=== PATIENT | female | born 1990 | race Caucasian/White ===

== ENCOUNTER 2020-06-12 08:26 | Emergency (ER) | payer OTHER, SELFPAY ==
--- NOTE | ~2020-06-12 | XR_ITS ---
EXAMINATION: XR chest 1V portable EXAM DATE: 06/12/2020 09:03 INDICATION: Cough, fever. Clinical concern for COVID 19. TECHNIQUE: Portable AP frontal chest x-ray was obtained. Comparison is made to prior examination from 04/07/2019. FINDINGS: Lungs are moderately hyperinflated. The lungs are clear. There are no pleural effusions. The cardiomediastinal silhouette is within normal limits. There is no pneumothorax suspected. The b ones and soft tissues are unremarkable. IMPRESSION: 1. No acute cardiopulmonary findings. 2. Hyperinflation. Reviewed, dictated and finalized at location A.
[2020-06-12 08:27] VITALS: BP 104/78; PULSE 92; RESP 18; TEMP 37.2; O2SAT 100
--- NOTE | 2020-06-12 08:27 | ED.SOB ---
HPI - SOB/Dyspnea General Chief Complaint: Shortness of Breath/Dyspnea Stated Complaint: sob,fever Time Seen by Provider: 06/12/20 08:27 Source: patient and EMS Mode of arrival: EMS Limitations: no limitations History of Present Illness HPI Narrative: Patient is a 30-year-old female who presents for evaluation of cough, shortness of breath, fever, congestion. Patient states she is concerned she has COVID given positive exposures at work. Patient does not mask at work. She reports 102 degrees fever yesterday. She reports her daughter is sick with similar symptoms. Patient reports that she feels as if she cannot catch her breath, but denies any chest pain. No fever today. She reports dry cough, congestion, nausea, myalgias, diarrhea yesterday. No current abdominal pain. Related Data Allergies Allergy/AdvReac Type Severity Reaction Status Date / Time risperidone Allergy Severe Other Verified 06/12/20 08:34 Review of Systems Review of Systems: Narrative: CONSTITUTIONAL: Reports fever and chills EYES: Denies visual changes, redness, or discharge. ENT: Reports rhinorrhea, congestion CARDIOVASCULAR: Denies chest pain, palpitations, or edema. RESPIRATORY: Reports cough and shortness of breath GASTROINTESTINAL: Denies abdominal pain, reports nausea and diarrhea GENITOURINARY: Denies dysuria or hematuria. SKIN: Denies rash or itching. MUSCULOSKELETAL: Denies back pain, joint pain, reports myalgias NEUROLOGIC: Denies headache, numbness, or weakness. [facility] Past Medical History Medical History Gestational diabetes Herpes Surgical History Surgical History History of appendectomy Social History Social History (Updated 06/12/20 @ 08:44 by Jia Bermudez MD) Smoking status: Former smoker Alcohol intake: unknown Substance use: unknown Living arrangements: with family Gender identity (if verbalized by the patient): Female Exam Narrative: Exam Narrative: GENERAL: Awake, alert, conversant HEAD: Normocephalic, atraumatic. EYES: PERRLA and EOMI. ENT: Nares clear, no rhinorrhea or epistaxis. Mucous membranes moist. NECK: Supple. CHEST: No respiratory distress, breathing even and non labored, no wheezing, no crackles, no coarse breath sounds, no chest wall tenderness HEART: Regular rate, sinus rhythm ABDOMEN:Non distended, non tender EXTREMITIES: Normal range of motion. No edema. SKIN: Warm, dry, no rash. NEURO:No focal deficits. Alert and oriented x3 Course Vital Signs Vital signs: Vital Signs Temperature 37.2 C 06/12/20 08:27 Pulse Rate 92 06/12/20 08:27 Respiratory Rate 18 06/12/20 08:27 Blood Pressure 104/78 06/12/20 08:27 Pulse Oximetry 100 06/12/20 08:27 Temperature 37.2 C 06/12/20 08:27 Pulse Rate 92 06/12/20 08:32 Respiratory Rate 18 06/12/20 08:27 Blood Pressure 104/78 06/12/20 08:27 Pulse Oximetry 99 06/12/20 08:33 MDM - SOB/Dyspnea MDM Narrative Medical decision making narrative: Patient presented for evaluation of cough, fever. At the time of initial assessment, ABCs are intact and vital signs are stable. She is not tachycardic, she is not having any chest pain. EKG without acute ischemic findings. Consider PE, although patient has no hypoxemia, no tachycardia, is PERC criteria negative. PE unlikely. Laboratory results show mild lymphopenia, no transaminitis. No evidence of infiltrate on chest x-ray. Patient was COVID swab. At this point, she likely does have COVID given her symptoms. No severe features at this point. No hypoxemia. No increased work of breathing. I explained to patient that severe symptoms can prevent within 5 to 10 days of illness, she will be given primary care physician follow-up, or advised to return should her breathing status worsen. Patient then discharged home. Differential Diagnosis Differential diagnosis: Likely co
[2020-06-12 08:32] VITALS: PULSE 92
[2020-06-12 08:33] VITALS: O2SAT 99
--- NOTE | 2020-06-12 08:49 | ECG_ITS ---
Measurements Intervals [place] Rate: 86 P: 66 SC: 133 QRS: 50 QRSD: 72 T: 19 QT: 366 QTc: 438 Interpretive Statements SINUS RHYTHM NONSPECIFIC T-WAVE ABNORMALITY- ANT/INF LEADS BASELINE ARTIFACT- V3-V4 BORDERLINE ECG Electronically Signed On 06-12-2020 11:17:44 CDT by Jeremy Edmond D.O.
[2020-06-12 08:59] LABS: Basophils Percent Auto 0.5 % (0.2-1.2); Eosinophils Absolute Auto 0.1 K/mm3 (0-0.3); Eosinophils Percent Auto 0.9 % (0-4.4); Hemoglobin 13.8 g/dL (12.0-15.0); Immature Granulocyte Absolute 0.02 K/mm3 (0.00-0.031); Immature Granulocyte Percent A 0.2 % (0-0.5); Lymphocytes Absolute Auto 1.16 K/mm3 (0.9-3.2); Lymphocytes Percent Auto 14.3 % (18.3-44.2); Mean Corpuscular HGB Conc 33.7 g/dl (32-36); Mean Corpuscular Hemoglobin 29.5 pg (26-34); Mean Corpuscular Volume 87.6 fl (80-100); Mean Platelet Volume 10.1 fl (7.4-10.4); Monocytes Absolute Auto 0.9 K/mm3 (0.1-0.6); Monocytes Percent Auto 11.1 % (2.6-8.5); Neutrophils Absolute Auto 5.9 K/mm3 (1.3-6.7); Platelet Count Result 329 k/mm3 (150-375); Red Blood Count 4.68 M/mm3 (4.2-5.4); Red Cell Distribution Width 13.1 % (11.5-14.5); White Blood Count 8.1 K/mm3 (4.5-10.0)
[2020-06-12 09:12] LABS: Alanine Aminotransferase 14 U/L (4-35); Albumin Level 4.1 g/dL (3.5-5.1); Alkaline Phosphatase 67 U/L (38-126); Aspartate Amino Transferase 19 U/L (14-36); Bilirubin,Total 0.3 mg/dL (0.2-1.3); Blood Urea Nitrogen 7 mg/dL (7-17); CRP 2.3 mg/dL (<1.0); Carbon Dioxide 20 mmol/L (22-30); Chloride 107 mmol/L (98-107); Estimated CRCL calculation 102 ml/min; Estimated Glomerular Filt Rate > 60; Glucose 99 mg/dL (65-105); Potassium 3.8 mmol/L (3.4-5.0); Sodium 136 mmol/L (137-145)
[2020-06-12] MEDS: ACETAMINOPHEN 500 MG TABLET 1000 MG PO (09:16)
[2020-06-12] MEDS: ONDANSETRON HCL ODT 4 MG TABLET PO (09:16)
[2020-06-12 10:05] VITALS: BP 92/59; PULSE 89; RESP 15; O2SAT 98
[2020-06-12 18:39] LABS: SARS-CoV-2 RNA PCR Negative
== END 2020-06-12 10:18 | disposition home or self-care (01) ==
PROVIDERS: Emergency Provider Emergency Medicine
DX: Z20.828 Contact with and (suspected) exposure to other viral communicable diseases (principal); B34.9 Viral infection, unspecified
CPT/HCPCS: 36415; 71045; 80053; 81025; 85025; 86140; 87635; 93005; 99283; A9270; C9803; U0003

== ENCOUNTER 2021-02-12 16:26 | Emergency (ER) | payer OTHER, SELFPAY ==
[2021-02-12 16:27] VITALS: BP 104/65; PULSE 80; RESP 16; TEMP 36.6; O2SAT 100
--- NOTE | 2021-02-12 18:40 | ED.GENADULT ---
HPI - General Adult General Chief complaint: Unspecified Stated complaint: not feeling well Time Seen by Provider: 02/12/21 17:08 History of Present Illness HPI narrative: Patient is a 30-year-old female who comes emergency room today because she is not feeling well. Reports that for the last 1 week she has been having chills, cold sweats, nausea with vomiting, frontal headache and she has been feeling very tired. She is taken Tylenol and her Profen with minimal relief. She checked her temperature at home but she never had a temperature over 100. Patient is here with her toddler daughter who is having viral symptoms and is getting tested for COVID-19. Patient has not been tested. Patient's and niece both have similar symptoms to the patient. Neither of them have been tested for COVID-19. Patient denies any possibility of . Denies abdominal pain, chest pain or shortness of breath. Related Data Allergies Allergy/AdvReac Type Severity Reaction Status Date / Time risperidone Allergy Severe Other Verified 06/12/20 08:34 Review of Systems Review of Systems: All systems reviewed & are unremarkable except as noted in HPI and below PMFSH Past Medical History Medical History (Updated 02/12/21 @ 18:47 by Nikunj Moise PA-C) Gestational diabetes Herpes Surgical History Surgical History History of appendectomy Social History Social History (Updated 06/12/20 @ 08:44 by Jia Bermudez MD) Smoking status: Former smoker Alcohol intake: unknown Substance use: unknown Gender identity (if verbalized by the patient): Female Exam Const: General: cooperative, no acute distress and well developed Other: Pleasant, well-appearing HENMT: Head: normal to inspection, normocephalic and atraumatic Ears: external ears normal, TM's normal bilaterally, TM normal on the right, TM normal on the left and EAC's normal General nose exam: Normal nares present Mouth: Yes Normal oral and palatal mucosa present and Yes oropharynx normal Throat: posterior oropharynx normal Eyes: General: appearance normal, both eyes and all related structures Neck: Neck: normal visual inspection Chest: Chest palpation & inspection: normal inspection of the chest Resp: Effort & Inspection: normal respiratory effort and able to speak in complete sentences Auscultation: clear to auscultation bilaterally Cardio: Rate: regular rate Rhythm: regular rhythm GI: Inspection: normal to inspection GI Palp: No abdominal tenderness Auscultation: normal bowel sounds Back/Spine/Pelvis: Back: no CVA tenderness Skin: General skin exam: normal color and no rashes or lesions noted Neuro: General: patient oriented x3 and moves all extremities Gait exam (Neuro): Normal gait present Course Course Emergency Course: Offered IV fluids and IV medicines and lab work. Discussed with patient the symptoms are consistent with a viral illness, probably the same virus that the rest of her family has. Patient politely refuses any IV fluids or any medicines at all right now, she has her toddler with her and she needs to get back home. We have agreed on plan for discharge, she will be tested for the COVID-19 virus. She will stay home until the test result comes back. Otherwise I will prescribe her with some Zofran, she will keep herself hydrated and she can use [id number] Tylenol on her Profen as needed and she will come back to the ED with any new or worsening symptoms. Vital Signs Vital signs: Vital Signs Temperature 36.6 C 02/12/21 16:27 Pulse Rate 80 02/12/21 16:27 Respiratory Rate 16 02/12/21 16:27 Blood Pressure 104/65 02/12/21 16:27 Pulse Oximetry 100 02/12/21 16:27 Temperature 36.6 C 02/12/21 16:27 Pulse Rate 80 02/12/21 16:27 Respiratory Rate 16 02/12/21 16:27 Blood Pressure 104/65 02/12/21 16:27 Pulse Oximetry 100 02/12/21 16:27 [facility]
[2021-02-12 23:58] LABS: SARS-CoV-2 RNA PCR Negative
== END 2021-02-12 19:01 | disposition home or self-care (01) ==
PROVIDERS: Physician Assistant Medical; Emergency Provider Emergency Medicine; PCP Nurse Practitioner
DX: Z20.828 Contact with and (suspected) exposure to other viral communicable diseases (principal); B34.9 Viral infection, unspecified; R11.10 Vomiting, unspecified
CPT/HCPCS: 99283; C9803; U0003; U0005

== ENCOUNTER 2021-03-24 16:16 | Emergency (ER) | payer OTHER, MEDICAID, SELFPAY ==
[2021-03-24 16:26] VITALS: BP 117/79; PULSE 110; RESP 16; TEMP 36.1; O2SAT 100
--- NOTE | 2021-03-24 17:55 | ED.GENADULT ---
HPI - General Adult General Chief complaint: Upper Respiratory Infection <Oniel Rojas PA-C - Last Filed: 03/24/21 17:59> Stated complaint: ST, N/V <Oniel Rojas PA-C - Last Filed: 03/24/21 17:59> Time Seen by Provider: 03/24/21 16:19 <Oniel Rojas PA-C - Last Filed: 03/24/21 17:59> Source: patient <Oniel Rojas PA-C - Last Filed: 03/24/21 17:59> Mode of arrival: ambulatory <Oniel Rojas PA-C - Last Filed: 03/24/21 17:59> Limitations: no limitations <Oniel Rojas PA-C - Last Filed: 03/24/21 17:59> History of Present Illness HPI narrative: Patient is a 31-year-old female who presents to emergency department for evaluation of URI symptoms that developed today she has 2 sick kids at home also notes that her recently had Covid patient had had a negative Covid recently and is just coming off being quarantined patient notes congestion rhinorrhea cough denies any other complaints presents in no distress is also being seen with several of her kids patient has not taken anything for her symptoms <Oniel Rojas PA-C - Last Filed: 03/24/21 17:59> Related Data Allergies/adverse reactions: Allergies Allergy/AdvReac Type Severity Reaction Status Date / Time risperidone Allergy Severe Other Verified 06/12/20 08:34 <Oniel Rojas PA-C - Last Filed: 03/24/21 17:59> Review of Systems Review of Systems: All systems reviewed & are unremarkable except as noted in HPI and below <Oniel Rojas PA-C - Last Filed: 03/24/21 17:59> PMFSH Past Medical History Medical History: Medical History (Updated 03/24/21 @ 17:58 by Oniel Rojas PA-C) Gestational diabetes Herpes <CAIO Martinez Last Filed: 03/24/21 17:59> Surgical History Surgical History: Surgical History History of appendectomy <CAIO Martinez Last Filed: 03/24/21 17:59> Social History Social History: Social History Smoking status: Former smoker Alcohol intake: unknown Substance use: unknown Gender identity (if verbalized by the patient): Female <Oniel Rojas PA-C - Last Filed: 03/24/21 17:59> Exam Narrative: Exam Narrative: GENERAL: Well-appearing, well-nourished, and in no acute distress. HEAD: Normocephalic, atraumatic. EYES: PERRLA and EOMI. ENT: Nares clear, no rhinorrhea or epistaxis. Mucous membranes moist. Oropharynx without tonsillar hypertrophy exudate or other lesions. NECK: Supple. No adenopathy or masses. CHEST: Clear to auscultation. No respiratory distress. No wheezes rales or rhonchi HEART: Regular rate and rhythm. No murmur heard. EXTREMITIES: Normal range of motion. No edema. SKIN: Warm, dry, no rash. NEURO: No focal deficits. Alert and oriented x3. PSYCH: Normal mood and affect. <Oniel Rojas PA-C - Last Filed: 03/24/21 17:59> Course Course Emergency Course: Patient in the room in no distress aware of case findings treatment plan and diagnosis agreeing to follow-up as instructed swabbed for Covid aware that she needs to follow with primary care to obtain the results and will be treated symptomatically normal vital signs felt appropriate for outpatient reevaluation <Oniel Rojas PA-C - Last Filed: 03/24/21 17:59> Vital Signs Vital signs: Vital Signs Temperature 97 F L 03/24/21 16:26 Pulse Rate 110 H 03/24/21 16:26 Respiratory Rate 16 03/24/21 16:26 Blood Pressure 117/79 03/24/21 16:26 Pulse Oximetry 100 03/24/21 16:26 Temperature 97 F L 03/24/21 16:26 Pulse Rate 100 03/24/21 18:07 Respiratory Rate 20 03/24/21 18:07 Blood Pressure 118/80 03/24/21 18:07 Pulse Oximetry 100 03/24/21 18:07 <Oniel Rojas PA-C - Last Filed: 03/24/21 17:59> Vital Signs Temperature 97 F L 03/24/21 16:26 Pulse Rate 110 H 03/24/21 16
[2021-03-24 18:07] VITALS: BP 118/80; PULSE 100; RESP 20; O2SAT 100
[2021-03-25 14:27] LABS: SARS-CoV-2 RNA PCR Negative
== END 2021-03-24 18:09 | disposition home or self-care (01) ==
PROVIDERS: Emergency Medicine Emergency Medical Services; Emergency Provider General Practice; PCP Nurse Practitioner
DX: J06.9 Acute upper respiratory infection, unspecified (principal); Z20.822 Contact with and (suspected) exposure to COVID-19; Z87.891 Personal history of nicotine dependence
CPT/HCPCS: 99283; C9803; U0003; U0005

== ENCOUNTER → 2022-01-06 13:09 | Outpatient (CLI) | payer OTHER, SELFPAY ==
--- NOTE | ~2022-01-06 | XR_ITS ---
XR chest 2V DATE: 01/06/2022 13:25 INDICATION: Dyspnea on exertion TECHNIQUE: 2 views COMPARISON: 06/12/2020 portable AP chest FINDINGS: Normal heart size. No hilar or mediastinal enlargement. No pulmonary infiltrate or consolid ation, pleural effusion or pulmonary vascular congestion or pneumothorax. Diffuse osteopenia. IMPRESSION: No active cardiopulmonary disease Diffuse osteopenia Reviewed, dictated and finalized at location B. CASE TRIMMER
== END ==
DX: R06.00 Dyspnea, unspecified (principal); M85.88 Other specified disorders of bone density and structure, other site
CPT/HCPCS: 71046

== ENCOUNTER → 2022-03-30 12:45 | Outpatient (CLI) | payer OTHER, SELFPAY ==
--- NOTE | ~2022-03-30 | XR_ITS ---
XR foot RT min 3V DATE: 03/30/2022 13:08 INDICATION: Burning sensation in feet TECHNIQUE: 4 views COMPARISON: None FINDINGS: No fracture or dislocation, periosteal reaction or bone destruction, joint space narrowing, erosive change or calcaneal enthesopathy. IMPRESSION: Negative Reviewed, dictated and finalized at location B. IMPRESSION: Negative
--- NOTE | ~2022-03-30 | XR_ITS ---
XR foot LT min 3V DATE: 03/30/2022 13:08 INDICATION: Burning sensation in feet TECHNIQUE: 4 views COMPARISON: None FINDINGS: No fracture or dislocation, periosteal reaction or bone destruction. No calcaneal enthesopa thy. Joint spaces are preserved. No erosive changes IMPRESSION: Negative Reviewed, dictated and finalized at location B. IMPRESSION: Negative
== END ==
DX: R20.2 Paresthesia of skin (principal)
CPT/HCPCS: 73630

== ENCOUNTER 2022-09-27 12:03 | Emergency (ER) | payer OTHER, SELFPAY ==
--- NOTE | ~2022-09-27 | CT_ITS ---
EXAMINATION: CT pelvis wo con DATE: 09/27/2022 15:19 INDICATION: TECHNIQUE: Computed tomography (CT) of the pelvis was performed without intravenous contrast. The dos e-length product was 440.58 mGy-cm. COMPARISON: None FINDINGS: Normal mineralization. Minimal degenerative change at the bilateral SI joints. No fracture or dislocation. Osteitis pubis. The bladder is decompressed. Remaining pelvic organs are within raimundo l limits. Appendix not visualized. No significant soft tissue abnormality. IMPRESSION: 1. No acute osseous finding in the pelvis. Reviewed, dictated and finalized at location K. ING TEACHER
--- NOTE | ~2022-09-27 | CT_ITS ---
EXAMINATION: CT lumbar spine wo con DATE: 09/27/2022 15:19 INDICATION: work injury, worsening radicular symptoms . TECHNIQUE: Computed tomography (CT) of the lumbar spine was performed without intravenous contrast. A utomated exposure control and iterative reconstruction technique were employed. The dose-length produ ct was 721.25 mGy-cm. COMPARISON: None. FINDINGS: 5 nonrib-bearing lumbar-type vertebral bodies. Pedicles intact. Normal vertebral body align ment. Vertebral body heights preserved. Disc spaces maintained. Normal facets and posterior elements. Minimal abdominal aortic atherosclerotic calcification. IMPRESSION: No acute fracture or traumatic malalignment in the lumbar spine. Reviewed, dictated and finalized at location K. [employer]ISOR SHUTTLE PREPARATION
[2022-09-27 12:08] VITALS: BP 117/82; PULSE 98; RESP 18; TEMP 36.3; O2SAT 100
--- NOTE | 2022-09-27 13:35 | ED.FEMALEGU ---
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 Patient states that she had an injury at work approximately 2 weeks ago. States that she was lifting a 70 pound box when she excellently dropped it and it dragged her down with that. Since that time she has had ongoing lower back and pelvic pain that radiates down her legs. States that she was seen by another ER 2 days ago and x-rays were obtained which were unremarkable. States that she continues to have pain so she came in for evaluation. She denies saddle anesthesia, bladder or bowel incontinence, IV drug use, numbness or weakness of her legs. She denies any bruising or skin changes. No fevers or chills, chest pain, shortness of breath, abdominal pain, vomiting, dysuria. Related Data Home Medications Medication Instructions Recorded Confirmed drospirenone 3 mg-ethinyl tablet 09/27/22 09/27/22 estradiol 0.03 mg tablet quetiapine 200 mg tablet,extended mg PO 09/27/22 release 24 hr topiramate 100 mg tablet mg 09/27/22 Allergies Allergy/AdvReac Type Severity Reaction Status Date / Time risperidone Allergy Severe Other Verified 09/27/22 12:49 Review of Systems Review of Systems: All systems reviewed & are unremarkable except as noted in HPI and below PMFSH Past Medical History Medical History Gestational diabetes Herpes Surgical History Surgical History History of appendectomy Social History Social History Smoking status: Former smoker Alcohol intake: unknown Substance use: unknown Gender identity (if verbalized by the patient): Female Exam Narrative: GENERAL: Intermittently tearful but in no acute distress HEAD: Normocephalic, atraumatic. EYES: PERRLA and EOMI. ENT: Nares clear, no rhinorrhea or epistaxis. Mucous membranes moist. NECK: Supple. CHEST: Clear to auscultation. No respiratory distress. HEART: Regular rate and rhythm. No murmur heard. Normal peripheral pulses. ABDOMEN: Soft, nontender, nondistended, normal active bowel sounds. EXTREMITIES: Normal range of motion. No edema. SKIN: Warm, dry, no rash. NEURO: No focal deficits. Alert and oriented x3. PSYCH: Normal mood and affect. Course Vital Signs Vital signs: Vital Signs Temperature 97.3 F L 09/27/22 12:08 Pulse Rate 98 09/27/22 12:08 Respiratory Rate 18 09/27/22 12:08 Blood Pressure 117/82 09/27/22 12:08 Pulse Oximetry 100 09/27/22 12:08 Oxygen Delivery Room Air 09/27/22 12:08 Temperature 97.3 F L 09/27/22 12:08 Pulse Rate 89 09/27/22 18:45 Respiratory Rate 17 09/27/22 18:45 Blood Pressure 119/80 09/27/22 18:45 Pulse Oximetry 100 09/27/22 18:45 Oxygen Delivery Room Air 09/27/22 12:08 MDM - Female Genitourinary MDM Narrative Medical decision making narrative: Patient is a 32-year-old female presenting with pelvic and hip pain following a work injury. Vitals within normal limits. Exam is unremarkable. She has mild midline tenderness of her lower lumbar spine that extends across both buttocks. Her abdomen is soft and benign. She is fully neurologically intact. She is able to ambulate. CT lumbar spine and pelvis were obtained which show no acute abnormalities. Her blood work is unremarkable. On reevaluation, patient states that she continues to have pain. 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 She may benefit from physical therapy following this work injury. Advised that she continue to use Tylenol and ibuprofen for pain control. Appropriate return precautions were given. Patient discharged
[2022-09-27] MEDS: KETOROLAC 30 MG/ML VIAL (*BKC) IV PUSH (13:47)
[2022-09-27] MEDS: methocarbamoL 500 MG TABLET PO (13:47)
[2022-09-27 13:53] LABS: Basophils Percent Auto 0.3 % (0.2-1.2); Eosinophils Absolute Auto 0.3 K/mm3 (0-0.3); Eosinophils Percent Auto 2.6 % (0-4.4); Hematocrit 44.5 % (37.0-47.0); Hemoglobin 14.4 g/dL (12.0-15.0); Immature Granulocyte Absolute 0.05 K/mm3 (0.00-0.031); Immature Granulocyte Percent A 0.4 % (0-0.5); Lymphocytes Absolute Auto 2.88 K/mm3 (0.9-3.2); Lymphocytes Percent Auto 23.9 % (18.3-44.2); Mean Corpuscular HGB Conc 32.4 g/dl (32-36); Mean Corpuscular Hemoglobin 27.3 pg (26-34); Mean Corpuscular Volume 84.4 fl (80-100); Mean Platelet Volume 9.9 fl (7.4-10.4); Monocytes Absolute Auto 0.7 K/mm3 (0.1-0.6); Monocytes Percent Auto 5.6 % (2.6-8.5); Neutrophils Absolute Auto 8.1 K/mm3 (1.3-6.7); Neutrophils Percent Auto 67.2 % (45.5-73.1); Platelet Count Result 427 k/mm3 (150-375); Red Blood Count 5.27 M/mm3 (4.2-5.4); Red Cell Distribution Width 15.6 % (11.5-14.5)
[2022-09-27 14:09] LABS: Mucus Urine Rare /lpf; RBC Urine 0-2 /hpf (0-2); Squamous Epithelial Cell Urine Few /hpf (Few); WBC Urine 0-3 /hpf
[2022-09-27 14:11] LABS: Appearance Urine Slightly Cloudy (Clear); Bilirubin Urine Negative (Negative); Blood Urine Negative (Negative); Color Urine Yellow (Yellow); Glucose Urine UA Negative (Negative); Ketones Urine Negative (Negative); Leukocyte Esterase Ur Trace LEU/UL (Negative); Nitrate Urine Negative (Negative); Protein Urine Negative (Negative); Specific Grav Ur 1.025 (1.001-1.035); Urobilinogen Urine 0.2 mg/dL (<2.0)
[2022-09-27 14:12] LABS: Alanine Aminotransferase 23 U/L (6-35); Albumin Level 4.6 g/dL (3.5-5.1); Alkaline Phosphatase 82 U/L (38-126); Anion Gap 19 mmol/L (8-16); Aspartate Amino Transferase 38 U/L (14-36); Bilirubin,Total 0.6 mg/dL (0.2-1.3); Blood Urea Nitrogen 12 mg/dL (7-17); Calcium 9.2 mg/dL (8.4-10.2); Carbon Dioxide 16 mmol/L (22-30); Chloride 108 mmol/L (98-107); Creatine Kinase 73 U/L (30-135); Estimated CRCL calculation 96 ml/min; Estimated Glomerular Filt Rate > 60; Glucose 118 mg/dL (65-110); Potassium 4.3 mmol/L (3.4-5.0); Sodium 143 mmol/L (137-145)
[2022-09-27 14:19] LABS: Add Urine Microscopic? YES
[2022-09-27 18:45] VITALS: BP 119/80; PULSE 89; RESP 17; O2SAT 100
== END 2022-09-27 18:47 | disposition home or self-care (01) ==
PROVIDERS: Emergency Provider Emergency Medicine
DX: S39.92XA Unspecified injury of lower back, initial encounter (principal); R10.2 Pelvic and perineal pain; Z87.891 Personal history of nicotine dependence; W18.39XA Other fall on same level, initial encounter
CPT/HCPCS: 36415; 72131; 72192; 80053; 81001; 81025; 82550; 85025; 96365; 96375; 99284; A9270; J0131; J1885

== ENCOUNTER 2025-05-09 08:34 | Outpatient (CLI) | payer OTHER, SELFPAY ==
--- NOTE | ~2025-05-09 | MMUS_ITS ---
EXAMINATION: MM diagnostic nanda BI w walter, US breast BI complete HISTORY: Breast pain TECHNIQUE: Additional 3-D tomosynthesis images of the breasts were performed and synthetic 2-D images were generated. CAD analysis was submitted and interpreted. High resolution bilateral complete breas t ultrasound was performed. COMPARISON: None BREAST PARENCHYMAL COMPOSITION: Dense: The breasts are heterogeneously dense, which may obscure small masses FINDINGS: MAMMOGRAPHIC FINDINGS: There are no suspicious masses, calcifications or architectural distortion in either breast to sugges t malignancy. ULTRASOUND: Complete US of all 4 quadrants of the breast/s and retroareolar region was reviewed. Right breast: At 9:00, 5 cm from the nipple there is a 4 mm cyst. In the right axilla there is a norm al-appearing 1.7 cm lymph node with fatty hilum. Left breast: At 4:00, 2 cm from the nipple there is a 3 mm cyst. At 6:00, 3 cm from the nipple there is a slightly irregular shaped hypoechoic mass measuring 4 mm with marginal vascularity and no signif icant posterior features. There is normal left axillary lymph nodes. IMPRESSION: 1. Irregular shaped hypoechoic 4 mm mass of the left breast at 6:00, 3 cm from the nipple. Ultrasound -guided left breast biopsy recommended. 2. No evidence for malignancy in the right breast. BI-RADS category 4, suspicious findings. Reviewed, dictated and finalized at location A. IMPRESSION: 1. Irregular shaped hypoechoic 4 mm mass of the left breast at 6:00, 3 cm from the nipple. Ultrasound-guided left breast biopsy recommended. 2. No evidence for malignancy in the right breast. BI-RADS category 4, suspicious findings.
== END 2025-05-09 08:35 | disposition home or self-care (01) ==
LOC: MICIMG 08:35
PROVIDERS: PCP Internal Medicine; Visit Provider Internal Medicine
DX: N64.4 Mastodynia (principal); R92.8 Other abnormal and inconclusive findings on diagnostic imaging of breast
CPT/HCPCS: 76641; 77062; 77066; G0279

== ENCOUNTER 2025-06-04 07:51 | Outpatient (CLI) | payer OTHER, SELFPAY ==
--- NOTE | ~2025-06-04 | MMUS_ITS ---
MM post biopsy diagnostic LT, US breast biopsy LT w image 06/04/2025 09:34 (accession [id number]), 06/04/2025 09:46 (accession [id number]) EXAMINATION: US GUIDED NEEDLE BIOPSY WITH VACUUM ASSISTANCE DATE: 06/04/2025 09:54 CDT INDICATION: Left breast mass seen on prior examination. Ultrasound-guided core biopsy is requested t o evaluate for malignancy. BREAST PARENCHYMAL COMPOSITION: Dense: The breasts are extremely dense, which lowers the sensitivity of mammography. TECHNIQUE AND FINDINGS: The risks and potential benefits of the procedure were discussed with the patient, and written inform ed consent was obtained. After sterile preparation of the left breast, 1% lidocaine was utilized for local anesthesia. 1% lidocaine with epinephrine was used for deep anesthesia. A 10G vacuum-assisted biopsy gun needle was advanced through to the outer edge of the region of inter est from a inferior approach utilizing sonographic guidance. A total of 4 tissue core samples were o btained through the lesion. An Inrad tissue marker clip was then placed at the biopsy site. Hemostas is was achieved. The patient tolerated procedure well and there was no evidence of immediate complication. The patien t was given verbal instructions partly is from the department. Left breast mammograms to document ti ssue marker clip placement. The tissue samples were submitted to surgical pathology for histologic an alysis. IMPRESSION: 1. Successful ultrasound-guided vacuum-assisted biopsy of left breast mass with post procedure mammo gram for marker placement. Please refer to pathology report for histologic analysis. Reviewed, dictated and finalized at location [] IMPRESSION: 1. Successful ultrasound-guided vacuum-assisted biopsy of left breast mass wit h post procedure mammogram for marker placement. Please refer to pathology repo rt for histologic analysis.
--- OUTSIDE RECORDS SUMMARY | 2025-06-04 07:55 | XMS_ITS | Referral Summary ---
Author Organization [facility] Address [address] [place] [address] Care Team Providers Care Costume Director Name Role Phone Unknown, Notinfile Primary Care Provider Unavail able Allergies Active Allergy Reactions Criticality Noted Date Comments Risperidone Other (See comments) Low 09/24/2022 Decreases BP Medications cyclobenzaprine (FLEXERIL) 10 mg tablet Take 0.5 tablets (5 mg total) by mouth 2 (two) times a day as needed for muscle spasms for up to 6 doses 3 tablet 09/24/2022 Active naproxen (NAPROSYN) 375 mg tablet Take 1 tablet (375 mg total) by mouth 2 (two) times a day with meals for 5 days 10 tablet 09/24/2022 Active lidocaine (LIDODERM) 5 % Place 1 patch on the skin daily for 5 days Remove & discard patch within 12 hours or as directed by . 5 patch 09/24/2022 Active Social History Tobacco Use Types Packs/Day Years Used Date Smoking Tobacco: Never Assessed Personal Safety Answer Date Recorded Have you ever been in or are you currently in a harmful physical or emotional relationship or is someone making you feel afraid or unsafe? 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 Gender Identity Not on file Sexual Orientation Not on file Last Filed Vital Signs Vital Sign Reading Time Taken Comments Blood Pressure 128/80 10/10/2023 5:13 PM COLOR ARTIST Pulse 91 10/10/2023 5:13 PM COLOR ARTIST Temperature 37.2 C (99 F) 10/10/2023 5:13 PM COLOR ARTIST Respiratory Rate 14 10/10/2023 5:13 PM COLOR ARTIST Oxygen Saturation 100% 10/10/2023 5:13 PM COLOR ARTIST Inhaled Oxygen Concentration - - Weight 72.6 kg (160 lb) 10/10/2023 5:13 PM COLOR ARTIST Height 157.5 cm (5' 2) 10/10/2023 5:13 PM COLOR ARTIST Body Mass Index 29.26 10/10/2023 5:13 PM COLOR ARTIST Plan of Treatment Not on file Insurance [employer] Care Teams Costume Director Relationship Specialty Start Date End Date Unknown, Notinfile PCP - General 09/24/22
--- OUTSIDE RECORDS SUMMARY | 2025-06-04 07:55 | XMS_ITS | Encounter Summary ---
Author Organization [facility] Address [address] [place] [address] Phone Care Team Providers Care Wire Drawing Setter Name Role Phone Cathryn Ceron APRN, RESEARCH COMPUTING SPECIALIST Unavailable [phone] Meek Márquez MD Primary Care Provider [phone] Reason for Visit * Reason Comments Medication Refill Encounter Details Date Type Department Care Team (Late st Contact Info) Description 01/12/2024 [facility]ill [facility] [address] [place] [address] Cathryn Ceron APRN, RESEARCH COMPUTING SPECIALIST #[address] [address] Medication Refill Social History Tobacco Use Types Packs/Day Years Used Date Smoking Tobacco: Former Cigarettes 0.3 16 2 2017 Smokeless Tobacco: Never Alcohol Use Standard Drinks/Week Comments No 0 (1 standard drink = 0.6 oz pur e alcohol) [facility] Utilities Answer Date Recorded In the past 12 months has e electric, gas, oil, or water company threatened to shut off services in your home? No 12/22/2023 PHQ-2 Answer Date Recorded Total Score - Questions 1-9 0 01/20 Hunger Vital Sign Answer Date Recorded Within the past 12 months, y ou worried that your food would run out before you got the money to buy more. Never true 12/22/19 24 Within the past 12 months, t he food you bought just didn't last and you didn't have money to get more. Never true 12/22/2023 PRAPARE - Transportation Answer Date Re corded In the past 12 months, has l ack of transportation kept you from medical appointments or from getting medications? No 11/24 In the past 12 months, has l ack of transportation kept you from meetings, work, or from getting things needed for daily living? No 12/22/2023 Housing Stability Vital Sign Answer Sergei e Recorded In the last 12 months, was t here a time when you were not able to pay the mortgage or rent on time? No 12/22/2023 In the last 12 months, how many places have you lived? 2 12/22/2023 In the last 12 months, was t here a time when you did not have a steady place to sleep or slept in a longterm (including now)? No 12/22/2023 Education Answer Date Recorded What is the highest level of school you have completed or the highest degree you have received? Some college, no degree 10/26/2023 Sexually Active Control Partners Comments Yes Oral Contraceptive Male Comments No Sex and Gender Information Value Date Recorded Sex Assigned at Not on file Legal Sex Female 8:58 PM BOARD OF DIRECTORS Gender Identity Not on file Sexual Orientation Not on file documented as of this encounter Miscellaneous Notes * Telephone Encounter - Leonarda Harper RN - 01/12/2024 1:32 PM BOARD OF DIRECTORS Medication failed the protocol, provider to review and approve the medication order if appropriate. Requested Prescriptions Pending Prescriptions Disp Refills Zepbound 5 MG/0.5ML Solution Auto-injector [Pharmacy Med Name: ZEPBOUND 5MG/0.5ML INJ (4 PF PENS)] 2 mL 0 Sig: ADMINISTER 5 MG UNDER THE SKIN 1 TIME A WEEK Not Delegated - Anti-Obesity Agents Protocol Failed - 01/12/2024 11:49 AM Failed - This refill cannot be delegated Passed - Visit with relevant provider in past 12 months or upcoming 90 days Recent Visits Date Type Provider Dept 10/26/23 Office Visit Cathryn Ceron APRN, RESEARCH COMPUTING SPECIALIST [facility] 02/05/23 Office Visit Cathryn Ceron APRN, CNP [facility] 01/21/23 [facility] Showing recent visits within past 365 days and meeting all other requirements Future Appointments No visits were found meeting these conditions. Showing future appointments within next 90 days and meeting all other requirements D OF DIRECTORS documented in this encounter Plan of Treatment Not on file documented as of this encounter Visit Diagnoses Diagnosis BMI 31.0-31.9,adult Body Mass Index 31.0-31.9, adult documented in this encounter Care Teams Wire Drawing Setter Relationship Specialty Start Date End Date Meek Márquez MD #[address] [address] PCP - General Family Medicine 01/26/22 Cathryn Ceron APRN, CNP #[address] [address] Nurse Practitioner Advanced Practice Nurse 01/26/22 documented as of this encounter
--- OUTSIDE RECORDS SUMMARY | 2025-06-04 07:55 | XMS_ITS ---
Author Organization [facility] Address [address] [place] [address] Phone Care Team Providers Care Rn Wound Care Name Role Phone Meek Márquez MD Primary Care Provider [phone] [facility] Status:Enrolled (Active) Start date:12/20/2024 Enrollment date:12/20/2024 Related social drivers of health:Social Connections, Alcohol Use, Tobacco Use, Financial Resource Strain, Stress, Physical Activity Continued Care and Services Coordination
--- OUTSIDE RECORDS SUMMARY | 2025-06-04 07:55 | XMS_ITS | Clinical Summary ---
Author Organization [facility] Address [address] [place] [address] Phone Care Team Providers Care Program Director Cable Television Name Role Phone Meek Márquez MD Primary Care Provider [phone] Allergies Active Allergy Reactions Criticality Noted Date Comments Risperidone Other (see Comments) 02/02/2022 Medications albuterol 108 (90 Base) MCG/ACT Aerosol Solution take 2 Puffs by inhalation every 6 hours as needed. 1 Active Drospirenone-Eth inyl Estradiol 3-0.03 MG Tablet Take 1 Tablet by mouth nightly. 1 Active valACYclovir (VALTREX) 500 MG TabletIndication s:HSV infection Take 1 Tablet by mouth daily. 90 Tablet 1 3 Active Additional Information Patient taking differently:500 mg OralNIGHTLY, Reported on 12/22/2023 ARIPiprazole (ABILIFY) 10 MG Tablet Take 10 mg by mouth daily. 4 Active eszopiclone (LUNESTA) 2 MG Tablet Take 2 mg by mouth nightly as needed for Sleep. 4 Active QUEtiapine Fumarate 300 MG Tablet Take 300 mg by mouth nightly. 3 Active topiramate (Topamax) 200 MG Tablet Take 200 mg by mouth nightly. Active MELATONIN GUMMIES PO Take 12 mg by mouth nightly. Active ondansetron (ZOFRAN-ODT) 4 MG TABLET DISPERSIBLE Take 1 Tablet by mouth every 8 hours as needed for Nausea - 1st line. 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 , antepartum 02/02/2022 Migraine headache 02/02/2022 Polycystic ovaries 02/02/2022 Obsessive compulsive disorder 02/02/2022 Bipolar II disorder 02/13/2021 PTSD (post-traumatic stress disorder) 12/12/2020 Mixed obsessional thoughts and acts 11/13/2020 Generalized anxiety disorder 11/13/2020 Immunizations Immunization Administration Dates Next Due Covid-19, Mrna, Lnp-s, Pf, 1 0 Mcg/0.2 Ml Dose, Lui-sucroe (*PEDIATRIC* Pfizer) 05/28/2021,05/02/2021 Covid-19, Mrna, Lnp-s, Pf, 30 Mcg/0.3 Ml Dose (Lizette fizer) 05/28/2021,05/02/2021 Family History Medical History Relation Name Comments No Known Problems Daughter 1 No Known Problems Daughter 2 No Known Problems Half-Brother Bipolar Disorder Half-Sister 1 Kidney Cancer Half-Sister 1 No Known Problems Half-Sister 2 Bipolar Disorder Mother Heart Disease Mother Hypertension Mother No Known Problems Son Relation Name Status Comments Daughter 1 Alive Daughter 2 Alive Father Alive Half-Brother Alive Half-Sister 1 Alive Half-Sister 2 Alive Mother Alive Son Alive Social History Tobacco Use Types Packs/Day Years Used Date Smoking Tobacco: Former Cigarettes 0.3 16 2 - 2017 Smokeless Tobacco: Never Tobacco Cessation:Counseling Given: Not Answered Alcohol Use Standard Drinks/Week Comments No 0 (1 standard drink = 0.6 oz pur e alcohol) [facility] Utilities Answer Date Recorded In the past 12 months has th e electric, gas, oil, or water company [...] place to sleep or slept in a long-term (including now)? No 12/22/2023 Education Answer Date Recorded What is the highest level of school you have completed or the highest degree you have received? Some college, no degree 10/26/2023 Sexually Active Control Partners Comments Yes Oral Contraceptive Male Comments No Sex and Gender Information Value Date Recorded Sex Assigned at Not on file Legal Sex Female 8:58 PM IMAGING SYSTEM ADMINISTRATOR Gender Identity Not on file Sexual Orientation Not on file Last Filed Vital Signs Vital Sign Reading Time Taken Comments Blood Pressure 120/80 12/22/2023 2:00 PM IMAGING SYSTEM ADMINISTRATOR Pulse 85 12/22/2023 2:00 PM IMAGING SYSTEM ADMINISTRATOR Temperature 36.6 C (97.9 F) 12/22/2023 2:00 PM IMAGING SYSTEM ADMINISTRATOR Respiratory Rate 16 12/22/2023 2:00 PM IMAGING SYSTEM ADMINISTRATOR Oxygen Saturation 100% 12/22/2023 2:00 PM IMAGING SYSTEM ADMINISTRATOR Inhaled Oxygen Concentration - - Weight 72 kg (158 lb 12.8 oz) 12/21/2023 11:49 P M IMAGING SYSTEM ADMINISTRATOR Height 157.5 cm (5' 2) 12/21/2023 11:49 PM IMAGING SYSTEM ADMINISTRATOR Body Mass Index 29.04 12/21/2023 11:49 PM IMAGING SYSTEM ADMINISTRATOR Plan of Treatment Health Maintenance Due Date Last Done Comments Diabetes: Hemoglobin A1c 1988 Hepatitis C Virus (HCV) Screening 1988 TdaP Immunization 1988 Human Papillomavirus (HPV) Immunization (1 - 3-dose series) 2003 Hepatitis B Immunization (1 of 3 - 19+ 3-dose series) 2007 Pap Smear 12/10/2023 12/10/2020 SARS-COV-2 Immunization ( season) 2024 05/28/2021, 05/28/2021, 05/02/2021, Additional history exists Influenza Immunization (#1) 2025 Cervical Cancer Screening (CCS) 12/10/2025 HPV/Cotest 12/10/2025 12/10/2020 Respiratory Syncytial Virus (RSV) Immunization (Adult) (1 - 1-dose 75+ series) 2063 Meningococcal Immunization (ACWY) Aged Out No longer eligible based on patient's age to complete this topic Pneumococcal Immunization Combined Aged Out No longer eligible based on patient's age to complete this topic Rotavirus Immunization Aged Out No lo nger eligible based on patient's age to complete this topic Procedures Procedure Name Priority Date/Time Associated Diagnosis Comments HUMAN PAPILLOMA VIRUS (HPV) 12/10/2020 12:00 AM IMAGING SYSTEM ADMINISTRATOR PATHOLOGY CYTOLOGY AWS CONSULTANT 12/10/2020 12:00 AM IMAGING SYSTEM ADMINISTRATOR from Last 3 Months or Most Recently Relevant to Health Maintenance Results * PATHOLOGY CYTOLOGY AWS CONSULTANT (12/10/2020 12:00 AM IMAGING SYSTEM ADMINISTRATOR) 12/10/2020 us Provider Scan PATHOLOGY/CYTOLOGY ORDERABLES Fi nal Result [facility] * HUMAN PAPILLOMA VIRUS (HPV) (12/10/2020 12:00 AM IMAGING SYSTEM ADMINISTRATOR) 12/10/2020 us Provider Scan LAB SEND OUTS Final Result [facility] from Last 3 Months or Most Recently Relevant to Health Maintenance Insurance [employer] Member Subscriber Plan / Payer (Ef fective 2021-Present) Name:Charisma Fontana Relation to Subscriber:Self Name:Charisma Fontana Payer ID:[id number] (NAIC) Type:Not on file Address: [address] [address] Advance Directives * Full Code (Latest Code Status on File) Date Activated Date Inactivated Comments 12/22/2023 12:01 AM 12/22/2023 8:33 PM CPR-Full Tr eatment: FULL ARREST: Attempt Resuscitation/CPR wit intubation and mechanical ventilation. PRE-ARREST: Use entire range of life support measures to stabilize the patient. Care Teams Program Director Cable Television Relationship Specialty Start Date End Date Meek Márquez MD #[address] [address] PCP - General Family Medicine 01/26/22
--- OUTSIDE RECORDS SUMMARY | 2025-06-04 07:55 | XMS_ITS | Clinical Summary ---
Author Organization [facility] Address [address] [place] [address] Care Team Providers Care Women'S Basketball Coach Name Role Phone Unknown, Notinfile Primary Care [...] on file Legal Sex Female 5:36 PM INTERNAL COMMUNICATIONS INTERN Gender Identity Not on file Sexual Orientation Not on file Last Filed Vital Signs Vital Sign Reading Time Taken Comments Blood Pressure 128/80 10/10/2023 5:13 PM INTERNAL COMMUNICATIONS INTERN Pulse 91 10/10/2023 5:13 PM INTERNAL COMMUNICATIONS INTERN Temperature 37.2 C (99 F) 10/10/2023 5:13 PM INTERNAL COMMUNICATIONS INTERN Respiratory Rate 14 10/10/2023 5:13 PM INTERNAL COMMUNICATIONS INTERN Oxygen Saturation 100% 10/10/2023 5:13 PM INTERNAL COMMUNICATIONS INTERN Inhaled Oxygen Concentration - - Weight 72.6 kg (160 lb) 10/10/2023 5:13 PM INTERNAL COMMUNICATIONS INTERN Height 157.5 cm (5' 2) 10/10/2023 5:13 PM INTERNAL COMMUNICATIONS INTERN Body Mass Index 29.26 10/10/2023 5:13 PM INTERNAL COMMUNICATIONS INTERN Plan of Treatment Health Maintenance Due Date Last Done Comments Cervical Cancer Screening 1988 Depression Screening 1988 Hepatitis C Screening 1988 Varicella Vaccines (1 of 2 - 13+ 2-dose series) 2001 Hepatitis B Screening 2006 Regular Well Visit/Exam 18-64 2006 Covid-19 Vaccine (3 - 2023-2 5 season) 2024 05/28/2021, 05/02/2021 Influenza Vaccine (Season Ended) 2025 DTaP/Tdap/Td Vaccine (2 - Tdap) 09/02/2027 09/02/2017 HPV Vaccines Aged Out No longer eligi ble based on patient's age to complete this topic Pneumococcal vaccine <65 Aged Out No longer eligible based on patient's age to complete this topic Insurance DONNA [facility] Care Teams Women'S Basketball Coach Relationship Specialty Start Date End Date Unknown, Notinfile PCP - General 09/24/22
--- OUTSIDE RECORDS SUMMARY | 2025-06-04 07:55 | XMS_ITS | Encounter Summary ---
Author Organization [facility] Address [address] [place] [address] Phone Care Team Providers Care Coat Check Attendant Name Role Phone Cathryn Ceron APRN, E LEARNING DEVELOPER Unavailable [phone] Meek Márquez MD Primary Care Provider [phone] Reason for Visit * Reason Comments Medication Refill Encounter Details Date Type Department Care Team (Late st Contact Info) Description 01/12/2024 Refill [facility] - Family [facility] [address] [place] [address] Cathryn Ceron APRN, E LEARNING DEVELOPER #[address] [address] Medication Refill Social History Tobacco Use Types Packs/Day Years Used Date Smoking Tobacco: Former Cigarettes 0.3 16 2 2017 Smokeless Tobacco: Never Alcohol Use Standard Drinks/Week Comments No 0 (1 standard drink = 0.6 oz pur e alcohol) [facility] Utilities Answer Date Recorded In [...] place to sleep or slept in a usp (including now)? No 12/22/2023 Education Answer Date Recorded What is the highest level of school you have completed or the highest degree you have received? Some college, no degree 10/26/2023 Sexually Active Control Partners Comments Yes Oral Contraceptive Male Comments No Sex and Gender Information Value Date Recorded Sex Assigned at Not on file Legal Sex Female 8:58 PM MORTGAGE SERVICING SPECIALIST Gender Identity Not on file Sexual Orientation Not on file documented as of this encounter Miscellaneous Notes * Telephone Encounter - Phoebe Burns RN - 01/13/2024 10:01 AM CST Signed Yesterday (01/12/2024): Zepbound 5 MG/0.5ML Solution Auto-injector Sig: ADMINISTER 5 MG UNDER THE SKIN 1 TIME A WEEK Disp: 2 mL ? Refills: 0 Signed by: Meek Márquez MD GAGE SERVICING SPECIALIST documented in this encounter Plan of Treatment Not on file documented as of this encounter Visit Diagnoses Diagnosis BMI 31.0-31.9,adult Body Mass Index 31.0-31.9, adult documented in this encounter Care Teams Coat Check Attendant Relationship Specialty Start Date End Date Meek Márquez MD #[address] [address] PCP - General Family Medicine 01/26/22 Cathryn Ceron APRN, E LEARNING DEVELOPER #[address] [address] Nurse Practitioner Advanced Practice Nurse 01/26/22 documented as of this encounter
--- NOTE | 2025-06-04 09:43 | S_PTH ---
PATIENT: Charisma Fontana LOC: [facility] U#:[id number] AGE/SX: 35/F ROOM: RE06/04/[address]: Yovana BustosMD : 1990 BED: DIS: 06/04/2025 SPEC #: [id number] RECD: 06/05/25 08:22 STATUS: ALBERTO RETamela #: [id number] LENY: 06/04/25 09:[address]: JuliYovana DEPT: [facility] Surgical RECD BY: Lara Sheridan Tissues: A - Breast Biopsy Procedures: Hematoxylin and Eosin Stain Gross and Microscopic Level 4
== END 2025-06-04 07:52 | disposition home or self-care (01) ==
LOC: ANHIMG 07:52
PROVIDERS: PCP Internal Medicine; Visit Provider Internal Medicine
DX: R92.8 Other abnormal and inconclusive findings on diagnostic imaging of breast (principal)
CPT/HCPCS: 19083; 77065; 88305; A4648

== ENCOUNTER 2025-06-16 13:27 | Observation (INO) | payer OTHER, SELFPAY ==
--- NOTE | ~2025-06-16 | CT_ITS ---
EXAMINATION: CT abdomen pelvis w con DATE: 06/16/2025 15:41 INDICATION: right flank pain TECHNIQUE: Computed tomography (CT) of the abdomen and pelvis was performed with 100 mL Omnipaque-350 intravenous contrast. Automated exposure control and iterative reconstruction technique were employe d. The dose-length product was 193.48 mGy-cm. COMPARISON: CT pelvis 09/27/2022. FINDINGS: Lower thorax: Unremarkable Liver: Periportal edema. Left lobe hemangioma. Biliary/Gallbladder: Gallbladder is normal. No bile duct dilation. Pancreas: No mass or duct dilation. Spleen: Normal. Adrenals:No mass. Kidneys: No suspicious mass or obstructing stone. Mild right ureterectasis, with urothelial enhanceme nt. 4 mm left lower pole nonobstructing calcification. GI tract: Mild distal esophageal and gastric wall edema. No small or large bowel dilation. Appendix n ot confidently identified. Mesentery/Peritoneum: No ascites, mass, or free air. Retroperitoneum: No mass. Atherosclerotic calcifications of intra-abdominal arterial vessels. Pelvis: Mild urinary bladder wall edema/inflammation. Normal uterus and bilateral ovaries. 1.9 cm rig ht Bartholin's duct cyst, with mild incomplete peripheral enhancement. Soft Tissues: Soft tissues and body wall unremarkable. Bones: No acute osseous finding. IMPRESSION: Mild esophagitis/gastritis. CT findings suggestive of cystitis, with possible ascending infection on the right. Consider pyelonep hritis in the differential. Periportal edema, as can occur with hepatitis and acute pyelonephritis. No CT findings to suggest oth er potential causes such as CHF, marialuisa hepatic lymphadenopathy, trauma, or cholangitis. Right Bartholin's gland duct cyst, with the suggestion of mild enhancement that could represent mild inflammation/infection. Reviewed, dictated and finalized at location K. IMPRESSION: Mild esophagitis/gastritis. CT findings suggestive of cystitis, with possible ascending infection on the ri ght. Consider pyelonephritis in the differential. Periportal edema, as can occur with hepatitis and acute pyelonephritis. No CT f indings to suggest other potential causes such as CHF, marialuisa hepatic lymphadeno eladia, trauma, or cholangitis. Right Bartholin's gland duct cyst, with the suggestion of mild enhancement that could represent mild inflammation/infection.
--- OUTSIDE RECORDS SUMMARY | 2025-06-16 13:30 | XMS_ITS | Encounter Summary ---
Author Organization [facility] Address [address] [place] [address] Phone Care Team Providers Care Lumber Planer Name Role Phone Cathryn Ceron APRN, LOADER HELPER SORTING YARD Unavailable [phone] Meek Márquez MD Primary Care Provider [phone] Reason for Visit * Reason Comments Medication Refill Encounter Details Date Type Department Care Team (Late st Contact Info) Description 01/12/2024 [facility]ill [facility] [address] [place] [address] Cathryn Ceron APRN, LOADER HELPER SORTING YARD [address] [address] Medication Refill Social History Tobacco Use Types Packs/Day Years Used Date Smoking Tobacco: Former Cigarettes 0.3 16 2 - 2017 Smokeless Tobacco: Never Alcohol Use Standard Drinks/Week Comments No 0 (1 standard drink = 0.6 oz pur e alcohol) [facility] Utilities Answer Date Recorded In [...] place to sleep or slept in a group home (including now)? No 12/22/2023 Education Answer Date Recorded What is the highest level of school you have completed or the highest degree you have received? Some college, no degree 10/26/2023 Sexually Active Control Partners Comments Yes Oral Contraceptive Male Comments No Sex and Gender Information Value Date Recorded Sex Assigned at Not on file Legal Sex Female 8:58 PM DISTRICT MANAGER POSTAL SERVICE Gender Identity Not on file Sexual Orientation Not on file documented as of this encounter Miscellaneous Notes * Telephone Encounter - Phoebe Burns RN - 01/13/2024 10:01 AM CST Signed Yesterday (01/12/2024): Zepbound 5 MG/0.5ML Solution Auto-injector Sig: ADMINISTER 5 MG UNDER THE SKIN 1 TIME A WEEK Disp: 2 mL ? Refills: 0 Signed by: Meek Márquez MD RICT MANAGER POSTAL SERVICE documented in this encounter Plan of Treatment Not on file documented as of this encounter Visit Diagnoses Diagnosis BMI 31.0-31.9,adult Body Mass Index 31.0-31.9, adult documented in this encounter Care Teams Lumber Planer Relationship Specialty Start Date End Date Meek Márquez MD [address] [address] [address] PCP - General Family Medicine 01/26/22 Cathryn Ceron APRN, LOADER HELPER SORTING YARD [address] [address] [address] Nurse Practitioner Advanced Practice Nurse 01/26/22 documented as of this encounter
--- OUTSIDE RECORDS SUMMARY | 2025-06-16 13:30 | XMS_ITS | Encounter Summary ---
Author Organization [facility] Care Team Providers Care Hand Twister Name Role Phone Meek Márquez MD Primary Care Provider [phone] Encounter Details Date Type Department Care Team (Latest Contact Info) Description 06/16/2025 Travel Social History Tobacco Use Types Packs/Day Years Used Date Smoking Tobacco: Former Cigarettes 0.3 16 2 2017 Smokeless Tobacco: Never Alcohol Use Standard Drinks/Week Comments No 0 (1 standard drink = 0.6 oz pur e alcohol) [facility] Utilities Answer Date Recorded In the [...] place to sleep or slept in a prison (including now)? No 12/22/2023 Education Answer Date Recorded What is the highest level of school you have completed or the highest degree you have received? Some college, no degree 10/26/2023 Sexually Active Control Partners Comments Yes Oral Contraceptive Male Comments No Sex and Gender Information Value Date Recorded Sex Assigned at Not on file Legal Sex Female 8:58 PM MEDICAL OFFICE ASSISTANT Gender Identity Not on file Sexual Orientation Not on file documented as of this encounter Plan of Treatment Not on file documented as of this encounter Visit Diagnoses Not on filedocumented in this encounter Care Teams Hand Twister Relationship Specialty Start Date End Date Meek Márquez MD #[address] [address] PCP - General Family Medicine 01/26/22 documented as of this encounter
--- OUTSIDE RECORDS SUMMARY | 2025-06-16 13:30 | XMS_ITS | Clinical Summary ---
Author Organization [facility] Address [address] [place] [address] Care Team Providers Care Car Restorer Name Role Phone Unknown, Notinfile Primary Care [...] on file Legal Sex Female 5:36 PM DIESEL PLANT OPERATOR Gender Identity Not on file Sexual Orientation Not on file Last Filed Vital Signs Vital Sign Reading Time Taken Comments Blood Pressure 128/80 10/10/2023 5:13 PM DIESEL PLANT OPERATOR Pulse 91 10/10/2023 5:13 PM DIESEL PLANT OPERATOR Temperature 37.2 C (99 F) 10/10/2023 5:13 PM DIESEL PLANT OPERATOR Respiratory Rate 14 10/10/2023 5:13 PM DIESEL PLANT OPERATOR Oxygen Saturation 100% 10/10/2023 5:13 PM DIESEL PLANT OPERATOR Inhaled Oxygen Concentration - - Weight 72.6 kg (160 lb) 10/10/2023 5:13 PM DIESEL PLANT OPERATOR Height 157.5 cm (5' 2) 10/10/2023 5:13 PM DIESEL PLANT OPERATOR Body Mass Index 29.26 10/10/2023 5:13 PM DIESEL PLANT OPERATOR Plan of Treatment Health Maintenance Due Date Last Done Comments Cervical Cancer Screening 1988 Depression Screening 1988 Hepatitis C Screening 1988 Varicella Vaccines (1 of 2 - 13+ 2-dose series) 2001 Hepatitis B Screening 2006 Regular Well Visit/Exam 18-64 2006 HPV Vaccines (1 - 3-dose SCD M series) 2015 Covid-19 Vaccine (3 - 2023-2 5 season) 2024 05/28/2021, 05/02/2021 Influenza Vaccine (#1) 2025 DTaP/Tdap/Td Vaccine (2 - Tdap) 09/02/2027 09/02/2017 Pneumococcal vaccine <65 Aged Out No longer eligible based on patient's age to complete this topic Insurance DONNA [facility] Care Teams Car Restorer Relationship Specialty Start Date End Date Unknown, Notinfile PCP - General 09/24/22
--- OUTSIDE RECORDS SUMMARY | 2025-06-16 13:30 | XMS_ITS | Referral Summary ---
Author Organization [facility] Address [address] [place] [address] Care Team Providers Care Vegetable Harvest Machine Operator Name Role Phone Unknown, Notinfile Primary Care [...] on file Legal Sex Female 5:36 PM FLOWER PLANTER Gender Identity Not on file Sexual Orientation Not on file Last Filed Vital Signs Vital Sign Reading Time Taken Comments Blood Pressure 128/80 10/10/2023 5:13 PM FLOWER PLANTER Pulse 91 10/10/2023 5:13 PM FLOWER PLANTER Temperature 37.2 C (99 F) 10/10/2023 5:13 PM FLOWER PLANTER Respiratory Rate 14 10/10/2023 5:13 PM FLOWER PLANTER Oxygen Saturation 100% 10/10/2023 5:13 PM FLOWER PLANTER Inhaled Oxygen Concentration - - Weight 72.6 kg (160 lb) 10/10/2023 5:13 PM FLOWER PLANTER Height 157.5 cm (5' 2) 10/10/2023 5:13 PM FLOWER PLANTER Body Mass Index 29.26 10/10/2023 5:13 PM FLOWER PLANTER Plan of Treatment Not on file Insurance [employer] Care Teams Vegetable Harvest Machine Operator Relationship Specialty Start Date End Date Unknown, Notinfile PCP - General 09/24/22
--- OUTSIDE RECORDS SUMMARY | 2025-06-16 13:30 | XMS_ITS | Encounter Summary ---
Author Organization [facility] Address [address] [place] [address] Phone Care Team Providers Care Varnish Cooker Name Role Phone Cathryn Ceron APRN, EDITOR INDEX Unavailable [phone] Meek Márquez MD Primary Care Provider Reason for Visit * Reason Comments Medication Refill Encounter Details Date Type Department Care Team (Late st Contact Info) Description 01/12/2024 Refill [facility] - [facility] [address] [place] [address] Cathryn Ceron APRN, EDITOR INDEX [address] [address] Medication Refill Social History Tobacco Use Types Packs/Day Years Used Date Smoking Tobacco: Former Cigarettes 0.3 16 2 - 2017 Smokeless Tobacco: Never Alcohol Use Standard Drinks/Week Comments No 0 (1 standard drink = 0.6 oz pur e alcohol) [facility] Utilities Answer Date Recorded In the [...] on file Legal Sex Female 8:58 PM JEWELSMITH Gender Identity Not on file Sexual Orientation Not on file documented as of this encounter Miscellaneous Notes * Telephone Encounter - Leonarda Harper RN - 01/12/2024 1:32 PM JEWELSMITH Medication failed the protocol, provider to review [...] Dept 10/26/23 Office Visit Cathryn Ceron APRN, CNP [facility] 02/05/23 Office Visit Cathryn Ceron APRN, CNP [facility] 01/21/23 Office Visit Cathryn Ceron APRN, CNP [facility] Showing recent visits within past 365 days and meeting all other requirements Future Appointments No visits were found meeting these conditions. Showing future appointments within next 90 days and meeting all other requirements LSMITH documented in this encounter Plan of Treatment Not on file documented as of this encounter Visit Diagnoses Diagnosis BMI 31.0-31.9,adult Body Mass Index 31.0-31.9, adult documented in this encounter Care Teams Varnish Cooker Relationship Specialty Start Date End Date Meek Márquez MD #[address] [address] PCP - General Family Medicine 01/26/22 Cathryn Ceron APRN, CNP [address] [address] Nurse Practitioner Advanced Practice Nurse 01/26/22 documented as of this encounter
--- OUTSIDE RECORDS SUMMARY | 2025-06-16 13:30 | XMS_ITS | Clinical Summary ---
Author Organization [facility] Address [address] [place] [address] Phone Care Team Providers Care Telecommunications Facility Examiner Name Role Phone Meek Márquez MD Primary Care Provider [phone] Allergies Active Allergy Reactions Criticality Noted Date Comments Mirtazapine Other (see Comments),Swelling Low 10/02 Risperidone Other (see Comments) 02/02/2022 Tirzepatide Other (see Comments) Medium 04/20/2024 Medications albuterol 108 (90 Base) MCG/ACT Aerosol Solution take 2 Puffs by inhalation every 6 hours as needed. 1 Active Drospirenone-Eth inyl Estradiol 3-0.03 MG Tablet Take 1 Tablet by mouth nightly. 1 Active valACYclovir (VALTREX) 500 MG TabletIndication s:HSV infection Take 1 Tablet by mouth daily. 90 Tablet 1 3 Active Additional Information Patient taking differently:500 mg OralNIGHTLY, Reported on 06/16/2025 ARIPiprazole (ABILIFY) 10 MG Tablet Take 10 [...] - 1st line. 30 Tablet 4 Active Additional Information Patient not taking.Reported on 06/16/2025 Zepbound 5 MG/0.5ML Solution Auto-injectorInd ications:BMI 31.0-31.9,adult ADMINISTER 5 MG UNDER THE SKIN 1 TIME A WEEK 2 mL 4 Active Additional Information Patient not taking.Reported on 06/16/2025 lisdexamfetamine dimesylate (Vyvanse) 40 MG Capsule Take 40 mg by mouth daily. Active sulfamethoxazole -trimethoprim DS (Bactrim DS) 800-160 MG TabletIndication s:Acute cystitis with hematuria Take 1 Tablet by mouth 2 times daily for 5 days. 10 Tablet 5 06/21/20 25 Active phenazopyridine (PYRIDIUM) 100 MG TabletIndication s:Acute cystitis with hematuria Take 1 Tablet by mouth 3 times daily for 3 days. 9 Tablet 5 06/19/20 25 Active Active Problems Problem Noted Date Diagnosed Date Abdominal pain 12/22/2023 Urinary tract infection 12/22/2023 Dehydration 12/22/2023 Elevated LFTs 12/22/2023 Enteritis 12/21/2023 Somatic dysfunction of cervical region 2 Accommodation disorder 02/02/2022 Cervical intraepithelial neoplasia grade [...] and acts 11/13/2020 Generalized anxiety disorder 11/13/2020 Encounters Date Type Department Care Team Description 06/16/2025 9:40 AM CDT Urgent Care Visit [facility] [place] [address] [place] [address] Erika Parra, DESK OPERATOR, SALESPERSON HEARING AIDS Acute cystitis with hematuria (Primary Dx); Urinary frequency Discharge Disposition: Discharged to home or Selfcare 06/16/2025 Travel from Last 3 Months Immunizations Immunization Administration Dates Next Due Covid-19, Mrna, Lnp-s, Pf, 1 0 Mcg/0.2 Ml Dose, Lui-sucroe (*PEDIATRIC* Pfizer) 05/28/2021,05/02/2021 Covid-19, Mrna, Lnp-s, Pf, 30 Mcg/0.3 Ml Dose (P fizer) 05/28/2021,05/02/2021 Family History Medical History Relation [...] drink = 0.6 oz pur e alcohol) [facility] [employer] Answer Date Recorded In the past 12 months has e [employer], gas, oil, or water [employer] threatened to shut off services in your [...] place to sleep or slept in a jail (including now)? No 12/22/2023 Education Answer Date Recorded What is the highest level of school you have completed or the highest degree you have received? Some college, no degree 10/26/2023 Sexually Active Control Partners Comments Yes Oral Contraceptive Male Comments No Sex and Gender Information Value Date Recorded Sex Assigned at Not on file Legal Sex Female 8:58 PM VEHICLE WINDOW TINTER Gender Identity Not on file Sexual Orientation Not on file Last Filed Vital Signs Vital Sign Reading Time Taken Comments Blood Pressure 96/60 06/16/2025 9:50 AM CDT Pulse 85 06/16/2025 9:50 AM CDT Temperature 36.4 C (97.5 F) 06/16/2025 9:50 AM CDT Respiratory Rate 16 06/16/2025 9:50 AM CDT Oxygen Saturation 98% 06/16/2025 9:50 AM CDT Inhaled Oxygen Concentration - - Weight 72 kg (158 lb 12.8 oz) 12/21/2023 11:49 P M VEHICLE WINDOW TINTER Height 157.5 cm (5' 2) 12/21/2023 11:49 PM VEHICLE WINDOW TINTER Body Mass Index 29.04 12/21/2023 11:49 PM VEHICLE WINDOW TINTER Plan of Treatment Health Maintenance Due Date Last Done Comments Diabetes: Hemoglobin A1c 1988 Hepatitis C Virus (HCV) Screening 1988 TdaP Immunization 1988 Human Papillomavirus (HPV) Immunization (1 - 3-dose series) 2003 Hepatitis B Immunization (1 of 3 - 19+ 3-dose series) 2007 Pap Smear 12/10/2023 12/10/2020 SARS-COV-2 Immunization ( season) 2024 05/28/2021, 05/28/2021, 05/02/2021, Additional history exists Influenza Immunization (#1) 2025 12/05/2024 Cervical Cancer Screening (CCS) 12/10/2025 HPV/Cotest 12/10/2025 12/10/2020 Respiratory Syncytial Virus (RSV) Immunization (Adult) (1 - 1-dose 75+ series) 2063 Diabetes: Eye Exam Discontinued 03/08/2009 Meningococcal Immunization (ACWY) Aged Out No longer eligible based on patient's age to complete this topic Pneumococcal Immunization Combined Aged Out No longer eligible based on patient's age to complete this topic Rotavirus Immunization Aged Out No lo nger eligible based on patient's age to complete this topic Procedures Procedure Name Priority Date/Time Associated Diagnosis Comments POCT UA AUTOMATED W/O MICRO Routine 06/16/2025 9:44 AM CDT Urinary frequency HUMAN PAPILLOMA VIRUS (HPV) 12/10/2020 12:00 AM VEHICLE WINDOW TINTER PATHOLOGY CYTOLOGY MAINTAINABILITY ENGINEER 12/10/2020 12:00 AM VEHICLE WINDOW TINTER from Last 3 Months or Most Recently Relevant to Health Maintenance Results * (ABNORMAL) POCT UA AUTOMATED W/O MICRO (06/16/2025 9:44 AM CDT) POC UA SPECIFIC GRAVITY 1.010 URINE PH 8.0 5.0 - 9.0 POC URINE LEUKOCYTES 75 /uL(A) Negative Joseph/uL POC URINE NITRITE Negative Negative POC URINE PROTEIN Negative Negative mg/dL POC URINE GLUCOSE Norm Negative, Norm mg/dL POC URINE KETONE Negative Negative mg/dL POC URINE UROBILINOGEN Norm Norm, 0.2 E.U./dL (mg/dL), 1 E.U./dL (mg/dL) POC URINE BILIRUBIN Negative Negative mg/dL POC URINE BLOOD INSTRUMENT 50 Jorge A/uL(A) Negative Jorge A/uL POC URINE COLOR Yellow POC URINE CLARITY Cloudy Urine 06/16/2025 9:44 AM CDT us Erika Parra DESK OPERATOR, SALESPERSON HEARING AIDS POINT OF CARE TESTI NG (MANUAL) Final Result * PATHOLOGY CYTOLOGY MAINTAINABILITY ENGINEER (12/10/2020 12:00 AM VEHICLE WINDOW TINTER) 12/10/2020 us Provider Scan PATHOLOGY/CYTOLOGY ORDERABLES Fi nal Result [facility] * HUMAN PAPILLOMA VIRUS (HPV) (12/10/2020 12:00 AM VEHICLE WINDOW TINTER) 12/10/2020 us Provider Scan LAB SEND OUTS Final Result Performing Organization Address City/[facility] Co de Phone Number [facility] from Last 3 Months or Most Recently Relevant to Health Maintenance Insurance CIG Advance Directives * Full Code (Latest Code Status on File) Date Activated Date Inactivated Comments 12/22/2023 12:01 AM 12/22/2023 8:33 PM CPR-Full Tr eatment: FULL ARREST: Attempt Resuscitation/CPR wit intubation and mechanical ventilation. PRE-ARREST: Use entire range of life support measures to stabilize the patient. Care Teams Telecommunications Facility Examiner Relationship Specialty Start Date End Date Meek Márquez MD [address] [address] PCP - General Family Medicine 01/26/22
--- OUTSIDE RECORDS SUMMARY | 2025-06-16 13:30 | XMS_ITS | Encounter Summary ---
Author Organization [facility] Address [address] [facility] [address] [place] [address] Phone Care Team Providers Care Executive Candidate Developer Name Role Phone Meek Márquez MD Primary Care Provider [phone] Reason for Visit * Reason Comments Urinary Frequency Encounter Details Date Type Department Care Team (Latest Contact Info) Description 06/16/2025 9:40 AM CDT [facility] [place] [address] [place] [address] Erika Parra, SPRING COILER HAND, HERBARIUM CURATOR [address] [place] [address] Acute cystitis with hematuria (Primary Dx); Urinary frequency Discharge Disposition: Discharged to home or Selfcare Social History Tobacco Use Types Packs/Day Years Used Date Smoking Tobacco: Former Cigarettes 0.3 16 2 - 2017 Smokeless Tobacco: Never Alcohol Use Standard Drinks/Week Comments No 0 (1 standard drink = 0.6 oz pur e alcohol) [facility] Utilities Answer Date Recorded In the [...] place to sleep or slept in a care home (including now)? No 12/22/2023 Education Answer Date Recorded What is the highest level of school you have completed or the highest degree you have received? Some college, no degree 10/26/2023 Sexually Active Control Partners Comments Yes Oral Contraceptive Male Comments No Sex and Gender Information Value Date Recorded Sex Assigned at Not on file Legal Sex Female 8:58 PM GUIDE DOMESTIC TOUR Gender Identity Not on file Sexual Orientation Not on file documented as of this encounter Last Filed Vital Signs Vital Sign Reading Time Taken Comments Blood Pressure 96/60 06/16/2025 9:50 AM CDT Pulse 85 06/16/2025 9:50 AM CDT Temperature 36.4 C (97.5 F) 06/16/2025 9:50 AM CDT Respiratory Rate 16 06/16/2025 9:50 AM CDT Oxygen Saturation 98% 06/16/2025 9:50 AM CDT Inhaled Oxygen Concentration - - Weight - - Height - - Body Mass Index - - documented in this encounter Patient Instructions * Patient Instructions* Erika Parra, SPRING COILER HAND, HERBARIUM CURATOR - 06/16/2025 9:40 AM CDT Increase the amount of fluids that you are drinking. Water, Pedialyte, Gatorade or Powerade are thebest choices. Rest or nap frequently to help your body recover. Care as instructed on AVS If medication was prescribed it was sent to the pharmacy. Take all medication as prescribed. Do not skip a dose and take until completed. Follow up with PCP if the symptoms do not improve Go to the ER if symptoms become severe documented in this encounter Plan of Treatment Pending Results Name Type Priority Associated Diagnoses Date /Time CULTURE, URINE Microbiology Routine Urinary frequency 06/16/2025 10:21 AM CDT documented as of this encounter Procedures Procedure Name Priority Date/Time Associated Diagnosis Comments POCT UA AUTOMATED W/O MICRO Routine 06/16/2025 9:44 AM CDT Urinary frequency documented in this encounter Results * (ABNORMAL) POCT UA AUTOMATED W/O [...] CLARITY Cloudy Urine 06/16/2025 9:44 AM CDT Erika Parra APRN, HERBARIUM CURATOR POINT OF CARE TESTI NG (MANUAL) Final Result documented in this encounter Visit Diagnoses Diagnosis Acute cystitis with hematuria- Primary Acute cystitis Urinary frequency documented in this encounter Care Teams Executive Candidate Developer Relationship Specialty Start Date End Date Meek Márquez MD #[address] [address] PCP - General Family Medicine 01/26/22 documented as of this encounter
--- OUTSIDE RECORDS SUMMARY | 2025-06-16 13:30 | XMS_ITS ---
Author Organization [facility] Address [address] [place] [address] Phone Care Team Providers Care Hvac Sheet Metal Installer Name Role Phone Meek Márquez MD Primary Care Provider [phone] [facility] Status:Enrolled (Active) Start date:12/20/2024 Enrollment date:12/20/2024 Related social drivers of health:Social Connections, Alcohol Use, Tobacco Use, Financial Resource Strain, Stress, Physical Activity Continued Care and Services Coordination
[2025-06-16 13:32] VITALS: BP 104/66; PULSE 51; RESP 16; TEMP 36.6; O2SAT 98
--- NOTE | 2025-06-16 13:59 | ED.BACK ---
HPI - Back Pain/Injury General Chief Complaint: Back Pain/Injury Stated Complaint: back pain Time Seen by Provider: 06/16/25 13:52 Source: patient, RN notes reviewed and old records reviewed Mode of arrival: ambulatory Limitations: no limitations History of Present Illness HPI Narrative: This is a 35 year old female who presents for evaluation of a urinary tract infection. She developed dysuria, urinary frequency and urgency yesterday. She was evaluated by urgent care this morning and she was told that she had UTI. She developed nausea and worsening pain before she was able to fill her prescriptions. She is now complaining of right flank pain . Denies hematuria or fever. She took ibuprofen at 3 am this morning. She rates pain 07/01 MD elicited complaint: back pain Work related injury: No Related Data Home Medications ?Medication ?Instructions ?Recorded ?Confirmed ?Last Taken ?Type drospirenone 3 mg-ethinyl 0.03 tablet PO HS 09/27/22 06/16/25 06/15/25 History estradiol 0.03 mg tablet topiramate 100 mg tablet 200 mg PO HS 09/27/22 06/16/25 06/15/25 History aripiprazole 10 mg tablet 10 mg PO DAILY 06/16/25 06/16/25 06/15/25 History eszopiclone 2 mg tablet 2 mg PO HS 06/16/25 06/16/25 06/15/25 History lisdexamfetamine 40 mg chewable 40 mg PO DAILY 06/16/25 06/16/25 06/15/25 History tablet (Vyvanse) valacyclovir 500 mg tablet 500 mg PO HS 06/16/25 06/16/25 06/15/25 History Allergies Allergy/AdvReac Type Severity Reaction Status Date / Time risperidone Allergy Severe Other Verified 06/16/25 13:29 COUNTS INCLUDE 234 BEDS AT [facility] Past Medical History Medical History (Updated 06/16/25 @ 23:02 by Diane Manzo MD) Bipolar disorder Gestational diabetes Herpes Surgical History Surgical History History of appendectomy Social History Social History Smoking status: Former smoker Alcohol intake: former Substance use: never Do You Feel Safe in your Home?: Yes Lack of Transportation: No Lack of Food: Never True Current Housing: I Have Housing Concerned About Future Housing: No Difficulty Paying Gas/Electric Bills: No Difficulty Paying for Meds: No Currently Unemployed: No Education: High School Diploma/GED Difficulty w/ Childcare or Family Care: No Living arrangements: with family Gender identity (if verbalized by the patient): Female Spiritual care concerns: No Exam Const: General: no acute distress and alert Nutritional Appearance: well nourished Orientation/consciousness: patient oriented x3 HENMT: Head: normal to inspection Resp: Effort & Inspection: normal respiratory effort Auscultation: clear to auscultation bilaterally Cardio: Rate: regular rate Rhythm: regular rhythm Heart sounds: no murmurs GI: GI Palp: Yes Soft to palpation, No Tenderness to palpation present (GI), No Guarding due to palpation present (GI) and No Rigid due to palpation Auscultation: normal bowel sounds : General: Yes CVA tenderness on the right Back/Spine/Pelvis: Back: CVA tenderness Skin: General skin exam: normal color Rashes: no rashes Neuro: General: patient oriented x3, moves all extremities and CN's II-XI intact bilaterally Extrem: General: normal to inspection Psych: Mental Status: mental status grossly normal Affect: normal affect Attitude: cooperative Course Reevaluation(s) Reevaluation #1: Patient states that her pain has improved as long as she does not move. Her nausea is worsening again. Patient has elevated wbc and CT shows ascending UTI. I discussed treatment plan of outpatient treatment vs admission. It was decided for patient to be admitted given continued nausea and soft blood pressure. She has been given IV rocephin and will continue to hydrated. Date: 06/16/25 Time: 16:24 Consultations Consultation #1: I spoke with [place], hospitalist, and she accepts patient to medical floor for treatment of pyelonephritis Date: 06/16/25 Time: 17:29 Vital Signs Vital signs: Vital Signs Temperature 97.8 F 06/16/25 13:32 Pulse Rate 51 L 06/16/25 13:32 Respiratory Rate 16 06/16/25 13:32 Blood Pressure 104/66 06/16/25 13:32 Pulse Oximetry 98 06/16/25 13:32 Oxygen Delivery Room Air 06/16/25 13:32 Temperature 97.8 F 06/16/25 22:00 Pulse Rate 80 06/16/25 22:00 Respiratory Rate 16 06/16/25 22:00 Blood Pressure 103/63 06/16/25 22:00 Pulse Oximetry 100 06/16/25 22:00 Oxygen Delivery Room Air 06/16/25 22:07 MDM - Back Pain/Injury MDM Narrative Medical decision making narrative: Patient with UTI symptoms and right flank pain. cbc, cmp , UA ordered. I also ordered IV fluids, zofran 4 mg IV and toradol 30 mg IV Differential Diagnosis Differential diagnosis: Likely lumbar radiculopathy, renal colic and pyelonephritis Medical Records Attestation: I reviewed the patient's medical records. Lab Data Attestation: I reviewed the patient's lab results. 06/16/25 14:34 06/16/25 14:34 Labs: Lab Results 06/16/25 06/16/25 06/16/25 Range/Units 14:34 14:37 15:49 WBC 14.9 H (4.5-10.0) K/mm3 RBC 4.12 L (4.2-5.4) M/mm3 Hgb 12.4 (12.0-15.0) g/dL Hct 37.2 (37.0-47.0) % MCV 90.3 (80-100) fl MCH 30.1 (26-34) pg MCHC 33.3 (32-36) g/dl RDW 13.2 (11.5-14.5) % Plt Count 291 (150-375) k/mm3 MPV 10.5 H (7.4-10.4) fl Immature Gran % (Auto) 0.3 (0-0.5) % Neut % (Auto) 77.7 H (45.5-73.1) % Lymph % (Auto) 15.3 L (18.3-44.2) % Faulk % (Auto) 5.6 (2.6-8.5) % Eos % (Auto) 0.8 (0-4.4) % Baso % (Auto) 0.3 (0.2-1.2) % Lymph # (Auto) 2.27 (0.9-3.2) K/mm3 Faulk # (Auto) 0.8 H (0.1-0.6) K/mm3 Eos # (Auto) 0.1 (0-0.3) K/mm3 Baso # (Auto) 0.0 (0.0-0.1) K/mm3 Abs Immat Gran (auto) 0.05 H (0.00-0.031) K/mm3 Absolute Neuts (auto) 11.6 H (1.3-6.7) K/mm3 Absolute Nucleated RBC 0.000 (0.0-0.012) K/mm3 Nucleated RBC % 0.0 (0.0-0.2) % Sodium 133 L (137-145) mmol/L Potassium 3.6 (3.4-5.0) mmol/L Chloride 108 H (98-107) mmol/L Carbon Dioxide 17 L (22-30) mmol/L Anion Gap 8 (4-12) mmol/L BUN 7 D (7-17) mg/dL Creatinine 0.73 (0.7-1.0) mg/dL Estim Creat Clear Calc 72 ml/min Estimated GFR > 60 (59 - ) Glucose 87 (65-110) mg/dL Lactic Acid 0.5 L (0.7-2.0) mmol/L Calcium 8.7 (8.4-10.2) mg/dL Total Bilirubin 0.5 (0.2-1.3) mg/dL AST 23 (14-36) U/L ALT 13 (6-35) U/L Alkaline Phosphatase 47 (38-126) U/L Total Protein 7.1 (6.3-8.2) g/dL Albumin 3.5 (3.5-5.1) g/dL Urine Color Yellow (Yellow) Urine Appearance Cloudy H (Clear) Urine pH 8.0 (5.0-9.0) Ur Specific Browder 1.010 (1.001-1.035) Urine Protein Trace (Negative) mg/dL Urine Glucose (UA) Negative (Negative) mg/dL Urine Ketones Negative (Negative) mg/dL Ur Blood (Man) 1+ H (Negative) Urine Nitrate Negative (Negative) Urine Bilirubin Negative (Negative) Urine Urobilinogen 1.0 (<2.0) mg/dL Leukocyte Esterase Rfl 3+ H (Negative) MICHELLE/UL Urine RBC 6-10 H (0-2) /hpf Urine WBC >100 H (0-3) /hpf Ur Squamous Epith Cells None seen (Few) /hpf Urine Bacteria 1+ H /hpf Urine Casts 0-2 POC Urine HCG, Qual Negative (Negative) Imaging Data Radiologist's impression: ITS Impressions Abdomen/Pelvis CT 06/16/25 15:43 IMPRESSION: Mild esophagitis/gastritis. CT findings suggestive of cystitis, with possible ascending infection on the right. Consider pyelonephritis in the differential. Periportal edema, as can occur with hepatitis and acute pyelonephritis. No CT findings to suggest other potential causes such as CHF, marialuisa hepatic lymphadenopathy, trauma, or cholangitis. Right Bartholin's gland duct cyst, with the suggestion of mild enhancement that could represent mild inflammation/infection. Discharge Plan Discharge Clinical Impression: Pyelonephritis Patient Disposition: Still a Patient Condition: Stable
--- OUTSIDE RECORDS SUMMARY | 2025-06-16 14:18 | XMS_ITS | Encounter Summary ---
Author Organization [facility] Address [address] [place] [address] Phone Care Team Providers Care Smearer Name Role Phone Meek Márquez MD Primary Care Provider [phone] Reason for Visit * Reason Comments Urinary Frequency Encounter Details Date Type Department Care Team (Latest Contact Info) Description 06/16/2025 9:40 AM CDT [facility] [place] [address] [place] [address] Erika Parra, FIBER MACHINE TENDER, TERRAZZO JOURNEYMAN [address] [place] [address] Acute cystitis with hematuria (Primary Dx); Urinary frequency Discharge Disposition: Discharged to home or Selfcare Social History Tobacco Use Types Packs/Day Years Used Date Smoking Tobacco: Former Cigarettes 0.3 16 2 - 2017 Smokeless Tobacco: Never Alcohol Use Standard Drinks/Week Comments No 0 (1 standard drink = 0.6 oz pur e alcohol) [facility] Utilities Answer Date Recorded In the [...] place to sleep or slept in a long term (including now)? No 12/22/2023 Education Answer Date Recorded What is the highest level of school you have completed or the highest degree you have received? Some college, no degree 10/26/2023 Sexually Active Control Partners Comments Yes Oral Contraceptive Male Comments No Sex and Gender Information Value Date Recorded Sex Assigned at Not on file Legal Sex Female 8:58 PM COMPRESS MACHINE OPERATOR Gender Identity Not on file Sexual [...] Patient Instructions * Patient Instructions* Erika Parra, FIBER MACHINE TENDER, TERRAZZO JOURNEYMAN - 06/16/2025 9:40 AM CDT Increase the [...] to the ER if symptoms become severe * Attachments The following attachments cannot be sent through Care Everywhere. * Urinary Tract Infection Adult Qzxx-yb-Dmph (Cambodian) documented in this encounter Progress Notes * Elijah Swann RMA - 06/16/2025 9:40 AM CDT Charisma Fontana complains of Flank pain and frequent urination since yesterday. Urinary Frequency This is a new problem. The current episode started yesterday. The problem occurs constantly. The problem has been gradually worsening since onset. The pain is moderate. The problem affects both sides. Associated symptoms include dysuria, flank pain, frequency, nausea and urgency. The symptoms are aggravated by urinating. Past treatments include NSAIDs. The treatment provided mild relief. She is sexually active. She uses oral contraceptives for contraception. The patient's menstrual history has been regular. Today's Review of Systems Gastrointestinal: Positive for nausea. Genitourinary: Positive for dysuria, flank pain, frequency and urgency. All other systems reviewed and are negative. * Erika Parra APRN, CNP - 06/16/2025 9:40 AM CDT HPI: Charisma Fontana is a 35 y.o. female in the prompt care today for urinary frequency. Symptoms started yesterday Severity of symptoms is constant and gradually worsening Associated symptoms include nausea, dysuria, flank pain and urinary urgency Patient is currently taking over the counter NSAIDs for the symptoms. Smoker: Former No pertinent Past, family, or social history was noted Problem List[1] ROS: Review of Systems Constitutional: Positive for chills (last night). Negative for fever. Genitourinary: Positive for dysuria, flank pain, frequency and urgency. PE: BP 96/60 (BP Location: Right Arm, BP Position: Sitting, BP Cuff Size: Regular) Pulse 85 Temp 97.5 ??F (36.4 ??C) (Temporal) Resp 16 LMP 05/25/2025 (Approximate) SpO2 98% Physical Exam Vitals and nursing note reviewed. Constitutional: General: She is not in acute distress. Appearance: Normal appearance. She is normal weight. She is not ill-appearing. Cardiovascular: Rate and Rhythm: Normal rate. Pulmonary: Effort: Pulmonary effort is normal. No respiratory distress. Abdominal: Tenderness: There is left CVA tenderness (slight). There is no right CVA tenderness. Skin: General: Skin is warm and dry. Neurological: Mental Status: She is alert and oriented to person, place, and time. ASSESSMENT/PLAN: 1. Urinary frequency - POCT UA AUTOMATED W/O MICRO - CULTURE, URINE 2. Acute cystitis with hematuria (Primary) - sulfamethoxazole-trimethoprim DS (Bactrim DS) 800-160 MG Tablet; Take 1 Tablet by mouth 2 times daily for 5 days. Dispense: 10 Tablet; Refill: 0 - phenazopyridine (PYRIDIUM) 100 MG Tablet; Take 1 Tablet by mouth 3 times daily for 3 days. Dispense: 9 Tablet; Refill: 0 - Increase the amount of fluids that you are drinking. Water, Pedialyte, Gatorade or Powerade are the best choices. Rest or nap frequently to help your body recover. AVS from today was printed, discussed with patient/family and given to patient/family Patient Instructions Increase the amount of fluids that you [...] to the ER if symptoms become severe Chief complaint and all history documented by ancillary staff were reviewed and verified, with additions or corrections, as appropriate. [1] Patient Active Problem List Diagnosis Somatic dysfunction of cervical region Accommodation disorder Bipolar II disorder (HCC) Cervical intraepithelial neoplasia grade 2 Major depressive disorder Gestational diabetes mellitus (GDM) Disorder of optic nerve Dyspepsia Low grade squamous intraepithelial cervical dysplasia affecting , antepartum Migraine headache Mixed obsessional thoughts and acts Polycystic ovaries Generalized anxiety disorder Obsessive compulsive disorder PTSD (post-traumatic stress disorder) Enteritis Abdominal pain Urinary tract infection Dehydration Elevated LFTs documented in this encounter Plan of Treatment [...] 06/16/2025 9:44 AM CDT Erika Parra APRN, TERRAZZO JOURNEYMAN POINT OF CARE TESTI NG (MANUAL) Final Result documented in this encounter Visit Diagnoses Diagnosis Acute cystitis with hematuria- Primary Acute cystitis Urinary frequency documented in this encounter Care Teams Smearer Relationship Specialty Start Date End Date Meek Márquez MD [address] [address] PCP - General Family Medicine 01/26/22 documented as of this encounter
--- OUTSIDE RECORDS SUMMARY | 2025-06-16 14:18 | XMS_ITS ---
Author Organization [facility] Address [address] [place] [address] Phone Care Team Providers Care Engine Cleaner Name Role Phone Meek Márquez MD Primary Care Provider [phone] [facility] Status:Enrolled (Active) Start date:12/20/2024 Enrollment date:12/20/2024 Related social drivers of health:Social Connections, Alcohol Use, Tobacco Use, Financial Resource Strain, Stress, Physical Activity Continued Care and Services Coordination
--- OUTSIDE RECORDS SUMMARY | 2025-06-16 14:18 | XMS_ITS | Referral Summary ---
Author Organization [facility] Address [address] [place] [address] Care Team Providers Care Fire Prevention Specialist Name Role Phone Unknown, Notinfile Primary Care [...] on file Legal Sex Female 5:36 PM INSURANCE ANALYST Gender Identity Not on file Sexual Orientation Not on file Last Filed Vital Signs Vital Sign Reading Time Taken Comments Blood Pressure 128/80 10/10/2023 5:13 PM INSURANCE ANALYST Pulse 91 10/10/2023 5:13 PM INSURANCE ANALYST Temperature 37.2 C (99 F) 10/10/2023 5:13 PM INSURANCE ANALYST Respiratory Rate 14 10/10/2023 5:13 PM INSURANCE ANALYST Oxygen Saturation 100% 10/10/2023 5:13 PM INSURANCE ANALYST Inhaled Oxygen Concentration - - Weight 72.6 kg (160 lb) 10/10/2023 5:13 PM INSURANCE ANALYST Height 157.5 cm (5' 2) 10/10/2023 5:13 PM INSURANCE ANALYST Body Mass Index 29.26 10/10/2023 5:13 PM INSURANCE ANALYST Plan of Treatment Not on file Insurance DONNA [employer]LEGIANCE Care Teams Fire Prevention Specialist Relationship Specialty Start Date End Date Unknown, Notinfile PCP - General 09/24/22
--- OUTSIDE RECORDS SUMMARY | 2025-06-16 14:18 | XMS_ITS | Clinical Summary ---
Author Organization [facility] Address [address] [place] [address] Phone Care Team Providers Care Checker Product Design Name Role Phone Meek Márquez MD Primary Care Provider [phone] Allergies Active Allergy Reactions Criticality Noted Date [...] [facility] [place] [address] [place] [address] Erika Parra, CENTRAL OFFICE ASSOCIATE, TRANSMISSION BUILDER Acute cystitis with hematuria (Primary Dx); Urinary [...] drink = 0.6 oz pur e alcohol) [facility] Answer Date Recorded In the past 12 months has e [employer], gas, oil, or water [employer] threatened to shut off services in your [...] place to sleep or slept in a halfway (including now)? No 12/22/2023 Education Answer Date Recorded What is the highest level of school you have completed or the highest degree you have received? Some college, no degree 10/26/2023 Sexually Active Control Partners Comments Yes Oral Contraceptive Male Comments No Sex and Gender Information Value Date Recorded Sex Assigned at Not on file Legal Sex Female 8:58 PM SHOP STEWARD Gender Identity Not on file Sexual Orientation [...] lb 12.8 oz) 12/21/2023 11:49 P M SHOP STEWARD Height 157.5 cm (5' 2) 12/21/2023 11:49 PM SHOP STEWARD Body Mass Index 29.04 12/21/2023 11:49 PM SHOP STEWARD Plan of Treatment Health Maintenance Due Date [...] HUMAN PAPILLOMA VIRUS (HPV) 12/10/2020 12:00 AM SHOP STEWARD PATHOLOGY CYTOLOGY INTRANET SPECIALIST 12/10/2020 12:00 AM SHOP STEWARD from Last 3 Months or Most Recently [...] 06/16/2025 9:44 AM CDT us Erika Parra CENTRAL OFFICE ASSOCIATE, TRANSMISSION BUILDER POINT OF CARE TESTI NG (MANUAL) Final Result * PATHOLOGY CYTOLOGY INTRANET SPECIALIST (12/10/2020 12:00 AM SHOP STEWARD) 12/10/2020 us Provider Scan PATHOLOGY/CYTOLOGY ORDERABLES Fi nal Result [facility] * HUMAN PAPILLOMA VIRUS (HPV) (12/10/2020 12:00 AM SHOP STEWARD) 12/10/2020 us Provider Scan LAB SEND OUTS Final Result Performing Organization Address City[facility] Co de Phone Number [facility] [...] measures to stabilize the patient. Care Teams Checker Product Design Relationship Specialty Start Date End Date Meek Márquez MD [address] [address] PCP - General Family Medicine 01/26/22
--- OUTSIDE RECORDS SUMMARY | 2025-06-16 14:18 | XMS_ITS | Encounter Summary ---
Author Organization [facility] Care Team Providers Care Party Plan Sales Director Name Role Phone Meek Márquez MD Primary Care Provider [phone] Encounter Details Date Type Department Care Team (Latest Contact Info) Description 06/16/2025 Travel Social History Tobacco Use Types Packs/Day Years Used Date Smoking Tobacco: Former Cigarettes 0.3 16 2 2017 Smokeless Tobacco: Never Alcohol Use Standard Drinks/Week Comments No 0 (1 standard drink = 0.6 oz pur e alcohol) [facility] Utilities Answer Date Recorded In the past [...] on file Legal Sex Female 8:58 PM MID LEVEL CLINICIAN Gender Identity Not on file Sexual Orientation Not on file documented as of this encounter Plan of Treatment Not on file documented as of this encounter Visit Diagnoses Not on filedocumented in this encounter Care Teams Party Plan Sales Director Relationship Specialty Start Date End Date Meek Márquez MD [address] [address] PCP - General Family Medicine 01/26/22 documented as of this encounter
--- OUTSIDE RECORDS SUMMARY | 2025-06-16 14:18 | XMS_ITS | Clinical Summary ---
Author Organization [facility] Address [address] [place] [address] Care Team Providers Care Store Clerk Checker Name Role Phone Unknown, Notinfile Primary Care [...] on file Legal Sex Female 5:36 PM TREE CHIPPER Gender Identity Not on file Sexual Orientation Not on file Last Filed Vital Signs Vital Sign Reading Time Taken Comments Blood Pressure 128/80 10/10/2023 5:13 PM TREE CHIPPER Pulse 91 10/10/2023 5:13 PM TREE CHIPPER Temperature 37.2 C (99 F) 10/10/2023 5:13 PM TREE CHIPPER Respiratory Rate 14 10/10/2023 5:13 PM TREE CHIPPER Oxygen Saturation 100% 10/10/2023 5:13 PM TREE CHIPPER Inhaled Oxygen Concentration - - Weight 72.6 kg (160 lb) 10/10/2023 5:13 PM TREE CHIPPER Height 157.5 cm (5' 2) 10/10/2023 5:13 PM TREE CHIPPER Body Mass Index 29.26 10/10/2023 5:13 PM TREE CHIPPER Plan of Treatment Health Maintenance Due Date [...] age to complete this topic Insurance DONNA [facility] Care Teams Store Clerk Checker Relationship Specialty Start Date End Date Unknown, Notinfile PCP - General 09/24/22
--- OUTSIDE RECORDS SUMMARY | 2025-06-16 14:18 | XMS_ITS | Encounter Summary ---
Author Organization [facility] Address [address] [place] [address] Phone Care Team Providers Care Wet Crown Blocking Operator Name Role Phone Cathryn Ceron APRN, CARRIAGE OPERATOR Unavailable [phone] Meek Márquez MD Primary Care Provider [phone] Reason for Visit * Reason Comments Medication Refill Encounter Details Date Type Department Care Team (Late st Contact Info) Description 01/12/2024 [facility]ill [facility] - [facility] [address] [place] [address] Cathryn Ceron APRN, CARRIAGE OPERATOR [address] [address] Medication Refill Social History Tobacco Use Types Packs/Day Years Used Date Smoking Tobacco: Former Cigarettes 0.3 16 2 - 2017 Smokeless Tobacco: Never Alcohol Use Standard Drinks/Week Comments No 0 (1 standard drink = 0.6 oz pur e alcohol) [facility] Utilities Answer Date Recorded In [...] place to sleep or slept in a residential (including now)? No 12/22/2023 Education Answer Date Recorded What is the highest level of school you have completed or the highest degree you have received? Some college, no degree 10/26/2023 Sexually Active Control Partners Comments Yes Oral Contraceptive Male Comments No Sex and Gender Information Value Date Recorded Sex Assigned at Not on file Legal Sex Female 8:58 PM PROMOTIONS ASSOCIATE Gender Identity Not on file Sexual Orientation Not on file documented as of this encounter Miscellaneous Notes * Telephone Encounter - Phoebe Burns RN - 01/13/2024 10:01 AM CST Signed Yesterday (01/12/2024): Zepbound 5 MG/0.5ML Solution Auto-injector Sig: ADMINISTER 5 MG UNDER THE SKIN 1 TIME A WEEK Disp: 2 mL ? Refills: 0 Signed by: Meek Márquez MD OTIONS ASSOCIATE documented in this encounter Plan of Treatment Not on file documented as of this encounter Visit Diagnoses Diagnosis BMI 31.0-31.9,adult Body Mass Index 31.0-31.9, adult documented in this encounter Care Teams Wet Crown Blocking Operator Relationship Specialty Start Date End Date Meek Márquez MD [address] [address] [address] PCP - General Family Medicine 01/26/22 Cathryn Ceron APRN, CARRIAGE OPERATOR [address] [address] [address] Nurse Practitioner Advanced Practice Nurse 01/26/22 documented as of this encounter
--- OUTSIDE RECORDS SUMMARY | 2025-06-16 14:18 | XMS_ITS | Encounter Summary ---
Author Organization [facility] Address [address] [place] [address] Phone Care Team Providers Care Metal Building Assembler Name Role Phone Cathryn Ceron APRN, NAIL MAKING MACHINE TENDER Unavailable [phone] Meek Márquez MD Primary Care Provider [phone] Reason for Visit * Reason Comments Medication Refill Encounter Details Date Type Department Care Team (Late st Contact Info) Description 01/12/2024 Refill [facility] - [facility] [address] [place] [address] Cathryn Ceron APRN, NAIL MAKING MACHINE TENDER [address] [address] Medication Refill Social History Tobacco Use Types Packs/Day Years Used Date Smoking Tobacco: Former Cigarettes 0.3 16 2 - 2017 Smokeless Tobacco: Never Alcohol Use Standard Drinks/Week Comments No 0 (1 standard drink = 0.6 oz pur e alcohol) [facility] Utilities Answer Date Recorded In the [...] on file Legal Sex Female 8:58 PM UNIVERSITY PROFESSOR Gender Identity Not on file Sexual Orientation Not on file documented as of this encounter Miscellaneous Notes * Telephone Encounter - Leonarda Harper RN - 01/12/2024 1:32 PM UNIVERSITY PROFESSOR Medication failed the protocol, provider to review [...] 90 days and meeting all other requirements ERSITY PROFESSOR documented in this encounter Plan of Treatment Not on file documented as of this encounter Visit Diagnoses Diagnosis BMI 31.0-31.9,adult Body Mass Index 31.0-31.9, adult documented in this encounter Care Teams Metal Building Assembler Relationship Specialty Start Date End Date Meek Márquez MD [address] [address] PCP - General Family Medicine 01/26/22 Cathryn Ceron APRN, CNP [address] [address] Nurse Practitioner Advanced Practice Nurse 01/26/22 documented as of this encounter
[2025-06-16] MEDS: SODIUM CHLORIDE 0.9% IV 1,000 ML 999 ML IV CONT ×2 (14:38→17:16)
[2025-06-16 14:39] LABS: BEDSIDEPREGUCG Negative (Negative)
[2025-06-16] MEDS: ONDANSETRON INJ 4 MG/2 ML VIAL IV PUSH ×2 (14:39→17:16)
[2025-06-16] MEDS: KETOROLAC 30 MG/ML VIAL (*BKC) IV PUSH ×2 (14:40→19:55)
[2025-06-16 15:04] LABS: Hematocrit 37.2 % (37.0-47.0); Hemoglobin 12.4 g/dL (12.0-15.0); Immature Granulocyte Percent A 0.3 % (0-0.5); Lymphocytes Absolute Auto 2.27 K/mm3 (0.9-3.2); Mean Corpuscular HGB Conc 33.3 g/dl (32-36); Mean Corpuscular Hemoglobin 30.1 pg (26-34); Mean Corpuscular Volume 90.3 fl (80-100); Nucleated Red Blood Cells Absolute Auto 0.000 K/mm3 (0.0-0.012); Nucleated Red Blood Cells Perc 0.0 % (0.0-0.2); Platelet Count Result 291 k/mm3 (150-375); Red Blood Count 4.12 M/mm3 (4.2-5.4); White Blood Count 14.9 K/mm3 (4.5-10.0)
[2025-06-16 15:09] LABS: Add Urine Microscopic? YES; Appearance Urine Cloudy (Clear); Glucose Urine UA Negative (Negative); Leukocyte Esterase Ur 3+ LEU/UL (Negative); Nitrate Urine Negative (Negative); Non Pathogenic Casts 0-2; Specific Grav Ur 1.010 (1.001-1.035)
[2025-06-16 15:16] LABS: Alanine Aminotransferase 13 U/L (6-35); Albumin Level 3.5 g/dL (3.5-5.1); Alkaline Phosphatase 47 U/L (38-126); Anion Gap 8 mmol/L (4-12); Aspartate Amino Transferase 23 U/L (14-36); Bilirubin,Total 0.5 mg/dL (0.2-1.3); Blood Urea Nitrogen 7 mg/dL (7-17); Calcium 8.7 mg/dL (8.4-10.2); Carbon Dioxide 17 mmol/L (22-30); Chloride 108 mmol/L (98-107); Estimated CRCL calculation 72 ml/min; Estimated Glomerular Filt Rate > 60; Glucose 87 mg/dL (65-110); Potassium 3.6 mmol/L (3.4-5.0); Sodium 133 mmol/L (137-145); Total Protein 7.1 g/dL (6.3-8.2)
[2025-06-16] MEDS: cefTRIAXone 1 GM in SODIUM CHLORIDE 0.9% IV 50 ML 100 ML IVPB (15:44)
[2025-06-16 17:20] VITALS: BP 103/70; PULSE 72; RESP 16; TEMP 36.6; O2SAT 100
--- NOTE | 2025-06-16 18:51 | ADMGEN ---
This patient, Charisma Fontana, was admitted to [facility] S[facility] Room 331-02. Patient/family oriented to hospital policies and general routines including ID bracelet, bed and alarms, visiting hours, pain management, procedures, bathroom and other care routines, personal items, smoking policy, room service/diet, and visiting hours. Information on how to activate the Rapid Response Team has been discussed. Patient/Family are encouraged to report perceived risks to care and to ask questions if they do not understand what they are told or what they should do.
[2025-06-16 18:58] VITALS: BP 103/77; PULSE 71; RESP 16; TEMP 36.8; O2SAT 100
[2025-06-16] MEDS: LACTATED RINGERS 1,000 ML 125 ML IV CONT (19:00)
--- NOTE | 2025-06-16 19:51 | P.HP_ITS ---
H&P: HPI History of Present Illness Date/Time: 06/16/25 19:51 Chief Complaint: Back pain Narrative: 35-year-old female past medical history bipolar presents the hospital with acute back pain. Patient complains of severe right flank pain and burning when she urinates. She is tearful at bedside. She complains of nausea but no vomiting due to pain. She denies fevers or chills. She states that she has a history of Bartholin's gland duct cyst while she was or large painful that had to and had to have I&D. She states that she is unaware if she has 1 right now. Leukocytosis 14.9, sodium 133, chloride 108 carbon dioxide is 17, lactic acid 0.5, UA shows cloudy 3+ leukocyte esterase over 100 wbc's 1+ bacteria. CT abdomen pelvis showed gastritis, cystitis, possible poly nephritis, Right Bartholin's gland duct cyst. Review of Systems Review of Systems: 12 systems were reviewed and are negativ e except for as per HPI. [facility] Past Medical History Medical History (Updated 06/16/25 @ 19:55 by [place] Araujo APRN) Bipolar disorder Gestational diabetes Herpes Surgical History Surgical History History of appendectomy Social History Social History Smoking status: Former smoker Alcohol intake: former Substance use: never Do You Feel Safe in your Home?: Yes Lack of Transportation: No Lack of Food: Never True Current Housing: I Have Housing Concerned About Future Housing: No Difficulty Paying Gas/Electric Bills: No Difficulty Paying for Meds: No Currently Unemployed: No Education: High School Diploma/GED Difficulty w/ Childcare or Family Care: No Living arrangements: with family Gender identity (if verbalized by the patient): Female Spiritual care concerns: No Meds Home Medications and Allergies Home Medications ?Medication ?Instructions ?Recorded ?Confirmed ?Type drospirenone 3 mg-ethinyl 0.03 tablet PO HS 09/27/22 06/16/25 History estradiol 0.03 mg tablet topiramate 100 mg tablet 200 mg PO HS 09/27/22 06/16/25 History aripiprazole 10 mg tablet 10 mg PO DAILY 06/16/25 06/16/25 History eszopiclone 2 mg tablet 2 mg PO HS 06/16/25 06/16/25 History lisdexamfetamine 40 mg chewable 40 mg PO DAILY 06/16/25 06/16/25 History tablet (Vyvanse) valacyclovir 500 mg tablet 500 mg PO HS 06/16/25 06/16/25 History Allergies Allergy/AdvReac Type Severity Reaction Status Date / Time risperidone Allergy Severe Other Verified 06/16/25 13:29 Vital Signs Vital Signs - 24 hr 06/16/25 13:32 06/16/25 17:20 06/16/25 18:58 Temperature 97.8 F 97.9 F 98.2 F Pulse Rate 51 L 72 71 Respiratory Rate 16 16 16 Blood Pressure 104/66 103/70 103/77 Pulse Oximetry 98 100 100 Oxygen Delivery Room Air Exam Narrative: General: well appearing, appears stated age. HEENT: normocephalic, atraumatic. Mucous membranes moist. EOMI, PERRLA, bilateral sclera anicteric, no conjunctival injection. Neck supple without JVD, lymphadenopathy, or bruit. Respiratory: clear to ascultation bilaterally. No rales/rhonic/wheezes. Cardiovascular: Regular rate and rhythm, normal S1-S2 upon ascultation. No murmurs, rubs, or clicks. PMI is nondisplaced, capillary refill less than 3 second. Abdomen: Soft, round, no pulsatile masses, nondistended and nontender. No rebound, no guarding. No CVA tenderness, no hepatosplenomegaly. Bowel sounds present to all four quadrants. No high pitch or tinkling sounds, resonant to percussion. Extremities: No cyanosis, clubbing, or edema present. Pulses are palpable 2/2. Active ROM to all four extremities. Neuro: Alert and orientated x 4. PERRLA. Cranial nerves 2-12 intact without focal deficit. Skin: Warm, dry, and intact, without rash, erythema, or lesion. Psych: pleasant, cooperative, normal speech, normal affect, no hallucinations, no dysarthia H&P: Results Labs Labs: Short CBC 06/16/25 Range/Units 14:34 WBC 14.9 H (4.5-10.0) K/mm3 Hgb 12.4 (12.0-15.0) g/dL Hct 37.2 (37.0-47.0) % Plt Count 291 (150-375) k/mm3 BMP 06/16/25 14:34 Sodium 133 L Potassium 3.6 Chloride 108 H Carbon Dioxide 17 L BUN 7 D Creatinine 0.73 Glucose 87 Calcium 8.7 Liver Function 06/16/25 Range/Units 14:34 Total Bilirubin 0.5 (0.2-1.3) mg/dL AST 23 (14-36) U/L ALT 13 (6-35) U/L Alkaline Phosphatase 47 (38-126) U/L Albumin 3.5 (3.5-5.1) g/dL Urine 06/16/25 Range/Units 14:34 Urine Color Yellow (Yellow) Urine Appearance Cloudy H (Clear) Urine pH 8.0 (5.0-9.0) Ur Specific [place] 1.010 (1.001-1.035) Urine Protein Trace (Negative) mg/dL Urine Glucose (UA) Negative (Negative) mg/dL Assessment and Plan Assessment and plan (1) Pyelonephritis: Code(s): N12 - Tubulo-interstitial nephritis, not specified as acute or chronic Status: Acute Assessment and Plan: IV Rocephin Culture and sensitivity pending LR at 125 Pain Management (2) Cyst: Status: Acute Assessment and Plan: Reoccur Ob consulted Quality VTE Prophylaxis VTE prophylaxis: mechanical ordered If No VTE Prophylaxis Answer both mechanical and pharmacologic: Reason no pharmacologic proph: medical contraindication Hospitalist MIPS Advance Care Plan I have confirmed that the patient's Advanced Care Plan is present, code status is documented, or surrogate decision maker is listed in patient medical record.: Yes Medication Reconciliation I have utilized all available resources to obtain, update and review the patients current medications (includes all prescriptions, OTC, herbals, cannabis, and nutritional supplements).: Yes
[2025-06-16] MEDS: PHENAZOPYRIDINE HCL 100 MG TABLET 200 MG PO (21:44)
[2025-06-16] MEDS: TOPIRAMATE 100 MG TABLET 200 MG PO (21:44)
[2025-06-16 21:48] VITALS: BMI 23.8
[2025-06-16 22:00] VITALS: BP 103/63; PULSE 80; RESP 16; TEMP 36.6; O2SAT 100
--- NOTE | 2025-06-17 04:59 | ADMGEN ---
This patient, Charisma Fontana, was admitted to [facility] Surg Room 331-02. Patient/family oriented to hospital policies and general routines including ID bracelet, bed and alarms, visiting hours, pain management, procedures, bathroom and other care routines, personal items, smoking policy, room service/diet, and visiting hours. Information on how to activate the Rapid Response Team has been discussed. Patient/Family are encouraged to report perceived risks to care and to ask questions if they do not understand what they are told or what they should do.
[2025-06-17] MEDS: ACETAMINOPHEN 325 MG TABLET 650 MG PO ×4 (05:09→23:16)
[2025-06-17] MEDS: LACTATED RINGERS 1,000 ML 125 ML IV CONT (05:10)
[2025-06-17] MEDS: ONDANSETRON INJ 4 MG/2 ML VIAL IV PUSH ×3 (05:15→23:16)
[2025-06-17 05:58] VITALS: BP 107/64; PULSE 78; RESP 18; TEMP 36.5; O2SAT 99
[2025-06-17 06:14] LABS: Hematocrit 31.5 % (37.0-47.0); Hemoglobin 10.2 g/dL (12.0-15.0); Immature Granulocyte Percent A 0.3 % (0-0.5); Lymphocytes Absolute Auto 2.27 K/mm3 (0.9-3.2); Mean Corpuscular HGB Conc 32.4 g/dl (32-36); Mean Corpuscular Hemoglobin 29.7 pg (26-34); Mean Corpuscular Volume 91.8 fl (80-100); Nucleated Red Blood Cells Absolute Auto 0.000 K/mm3 (0.0-0.012); Nucleated Red Blood Cells Perc 0.0 % (0.0-0.2); Platelet Count Result 238 k/mm3 (150-375); Red Blood Count 3.43 M/mm3 (4.2-5.4); White Blood Count 9.8 K/mm3 (4.5-10.0)
[2025-06-17 06:43] LABS: Alanine Aminotransferase 12 U/L (6-35); Albumin Level 2.6 g/dL (3.5-5.1); Alkaline Phosphatase 48 U/L (38-126); Anion Gap 6 mmol/L (4-12); Aspartate Amino Transferase 25 U/L (14-36); Bilirubin,Total 0.3 mg/dL (0.2-1.3); Blood Urea Nitrogen 5 mg/dL (7-17); Calcium 7.5 mg/dL (8.4-10.2); Carbon Dioxide 14 mmol/L (22-30); Chloride 112 mmol/L (98-107); Estimated CRCL calculation 70 ml/min; Estimated Glomerular Filt Rate > 60; Glucose 86 mg/dL (65-110); Potassium 3.5 mmol/L (3.4-5.0); Sodium 132 mmol/L (137-145); Total Protein 5.6 g/dL (6.3-8.2)
[2025-06-17] MEDS: PHENAZOPYRIDINE HCL 100 MG TABLET 200 MG PO ×3 (08:26→16:35)
--- NOTE | 2025-06-17 08:56 | P.PNIM_ITS ---
Progress Note: A&P Assessment and Plan (1) Pyelonephritis: Code(s): N12 - Tubulo-interstitial nephritis, not specified as acute or chronic Status: Acute Assessment and Plan: - UA: cloudy appearance with 1+ blood, negative nitrates, 3+ leukocytes, 6-10 RBC, > 100 WBC, 1+ bacteria - UC obtained on 06/16: pending - No previous micro to be reviewed - CT abdomen/pelvis: Suggestive cystitis, with possible ascending infection on the right. Consider pyelonephritis in the differential. Periportal edema, as can occur with hepatitis and acute pyelonephritis. - started on Rocephin on 06/16 (2) Urinary tract infection: Code(s): N39.0 - Urinary tract infection, site not specified Status: Acute Assessment and Plan: See plan above. 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 One required incision and drainage multiple times and the other burst spontaneously. Denies STD risks or rashes CT abdomen/pelvis: Right Bartholin's gland duct cyst, with the suggestion of mil d enhancement that could represent mild inflammation/infection MRSA swab ordered, history of staph infection on low back 20 years ago Remains on Rocephin for cocurrent UTI/Pyelonephritis ball shagger consulted Time Spent With Patient Time with patient: 25 - 35 minutes Subjective Date/time seen: 06/17/25 08:56 Interval history: 35 year old female with past medical history of bipolar presents to the hospital for right flank pain. Patient is pleasant sitting up comfortably in bed. She continues to endorse right flank pain and dysuria however notes that this has much improved since admission. She describes this as a dull ache at this point. She has no other complaints denying chest pain, shortness a breath, palpitations, nausea/vomiting, and abdominal pain. Review of Systems Review of Systems: All systems reviewed & are unremarkable except as noted in HPI and below Exam Narrative: AF HR 78 RR 18 SpO2 99 BP 107/64 General: well nourished, well-developed female in no acute respiratory distress who is nontoxic appearing, sitting up in bed. HEENT: Normocephalic. Atraumatic. Extraocular movement intact. Sclera clear and anicteric. No facial asymmetry. Chest: Lungs are clear to auscultation bilaterally. No wheezes or crackles. CV: Heart was regular rate and rhythm. S1-S2. No murmurs, gallops, or rubs. Abd: Abdomen was soft. Nontender. Nondistended. Positive bowel sounds. No organomegaly or masses. CVA tenderness right. Neuro: Patient is alert and oriented x4. Speech is clear. Objective Data Vital Signs Vital Signs: Vital Signs - 24 hr 06/16/25 13:32 06/16/25 17:20 06/16/25 18:58 Temperature 97.8 F 97.9 F 98.2 F Pulse Rate 51 L 72 71 Respiratory Rate 16 16 16 Blood Pressure 104/66 103/70 103/77 Pulse Oximetry 98 100 100 Oxygen Delivery Room Air 06/16/25 22:00 06/16/25 22:07 06/17/25 05:58 Temperature 97.8 F 97.7 F Pulse Rate 80 78 Respiratory Rate 16 18 Blood Pressure 103/63 107/64 Pulse Oximetry 100 99 Oxygen Delivery Room Air 06/17/25 08:00 Temperature Pulse Rate Respiratory Rate Blood Pressure Pulse Oximetry Oxygen Delivery Room Air Intake/Output Intake/Output: Intake & Output 06/14/25 06/15/25 06/16/25 06/17/25 23:59 23:59 23:59 23:59 Intake Total 2049 1550 Balance 2049 155 Meds/Results Medications: Active Medications Generic Name Dose Route Start Last Admin Trade Name Freq PRN Reason Stop Dose Admin Acetaminophen 650 mg 06/17/25 00:00 06/17/25 05:09 Acetaminophen 325 Mg Tablet PO 650 mg Q6HR LES Administration Hydrocodone Bitart/Acetaminophen 1 tab 06/16/25 17:32 Hydrocodone/Acetaminophen (*Crx) 5-325 Mg Tablet PO Q4H PRN Pain Rated 4-6 Aripiprazole 10 mg 06/17/25 09:00 06/17/25 08:26 Aripiprazole 10 Mg Tablet PO 10 mg DAILY LES Administration Hydromorphone HCl 0.5 mg 06/16/25 22:08 Hydromorphone Hcl Inj (*Crx) 2 Mg/Ml Vial IV PUSH Q3H PRN Pain Rated 7-10 Lactated Ringer's 1,000 mls @ 125 mls/hr 06/16/25 17:35 06/17/25 05:10 Lr - Lactated Ringers Iv IV CONT 125 mls/hr .Q8H LES Administration Ceftriaxone Sodium 1 gm/ 50 mls @ 100 mls/hr 06/17/25 16:00 Sodium Chloride IVPB Q24H LES Ketorolac Tromethamine 30 mg 06/16/25 17:32 06/16/25 19:55 Ketorolac 30 Mg/Ml Vial (*[facility]) IV PUSH 06/21/25 17:31 30 mg Q6H PRN Administration Pain Rated 4-6 IF NPO Miscellaneous Information 0 each 06/16/25 00:01 06/17/25 00:05 Vyvanse Nonform Can Pt Bring From Home? XX 07/16/25 00:00 Not Given CLARIFY LES Miscellaneous Information 0 each 06/16/25 00:01 06/17/25 00:05 Drospirenone-Ethinyl Estradiol 3-0.03 Mg Tablet) Nonform Can Pt Bring From Home? XX 07/16/25 00:00 Not Given CLARIFY LES Non-Formulary Medication 0.03 tablet 06/16/25 21:00 Drospirenone-Ethinyl Estradiol PO 07/16/25 20:59 HS LES Non-Formulary Medication 40 mg 06/17/25 09:00 Lisdexamfetamine [Vyvanse] PO 07/17/25 08:59 DAILY LES Ondansetron HCl 4 mg 06/16/25 17:32 06/17/25 05:15 Ondansetron Inj 4 Mg/2 Ml Vial IV PUSH 4 mg Q4H PRN Administration Nausea Phenazopyridine HCl 200 mg 06/17/25 08:00 06/17/25 08:26 Phenazopyridine Hcl 100 Mg Tablet PO 200 mg TIDWM LES Administration Topiramate 200 mg 06/16/25 21:00 06/16/25 21:44 Topiramate 100 Mg Tablet PO 200 mg HS LES Administration Trazodone HCl 100 mg 06/16/25 22:06 06/16/25 22:27 Trazodone Hcl 50 Mg Tablet PO 100 mg HS PRN Administration Insomnia Valacyclovir HCl 500 mg 06/16/25 21:00 06/16/25 21:44 Valacyclovir Hcl 500 Mg Tablet PO 500 mg HS LES Administration Radiology Results: ITS Impressions Abdomen/Pelvis CT 06/16/25 15:43 IMPRESSION: Mild esophagitis/gastritis. CT findings suggestive of cystitis, with possible ascending infection on the right. Consider pyelonephritis in the differential. Periportal edema, as can occur with hepatitis and acute pyelonephritis. No CT findings to suggest other potential causes such as CHF, marialuisa hepatic lymphadenopathy, trauma, or cholangitis. Right Bartholin's gland duct cyst, with the suggestion of mild enhancement that could represent mild inflammation/infection. Labs Labs: Laboratory Results - last 24 hr 06/16/25 06/16/25 06/16/25 14:34 14:37 15:49 WBC 14.9 H RBC 4.12 L Hgb 12.4 Hct 37.2 MCV 90.3 MCH 30.1 MCHC 33.3 RDW 13.2 Plt Count 291 MPV 10.5 H Immature Gran % (Auto) 0.3 Neut % (Auto) 77.7 H Lymph % (Auto) 15.3 L [place] % (Auto) 5.6 Eos % (Auto) 0.8 Baso % (Auto) 0.3 Lymph # (Auto) 2.27 [place] # (Auto) 0.8 H Eos # (Auto) 0.1 Baso # (Auto) 0.0 Abs Immat Gran (auto) 0.05 H Absolute Neuts (auto) 11.6 H Absolute Nucleated RBC 0.000 Nucleated RBC % 0.0 Sodium 133 L Potassium 3.6 Chloride 108 H Carbon Dioxide 17 L Anion Gap 8 BUN 7 D Creatinine 0.73 Estim Creat Clear Calc 72 Estimated GFR > 60 Glucose 87 Lactic Acid 0.5 L Calcium 8.7 Total Bilirubin 0.5 AST 23 ALT 13 Alkaline Phosphatase 47 Total Protein 7.1 Albumin 3.5 Urine Color Yellow Urine Appearance Cloudy H Urine pH 8.0 Ur Specific [place] 1.010 Urine Protein Trace Urine Glucose (UA) Negative Urine Ketones Negative Ur Blood (Man) 1+ H Urine Nitrate Negative Urine Bilirubin Negative Urine Urobilinogen 1.0 Leukocyte Esterase Rfl 3+ H Urine RBC 6-10 H Urine WBC >100 H Ur Squamous Epith Cells None seen Urine Bacteria 1+ H Urine Casts 0-2 POC Urine HCG, Qual Negative 06/17/25 05:46 WBC 9.8 RBC 3.43 L Hgb 10.2 L Hct 31.5 L MCV 91.8 MCH 29.7 MCHC 32.4 RDW 13.4 Plt Count 238 MPV 10.2 Immature Gran % (Auto) 0.3 Neut % (Auto) 67.6 Lymph % (Auto) 23.1 [place] % (Auto) 7.2 Eos % (Auto) 1.4 Baso % (Auto) 0.4 Lymph # (Auto) 2.27 [place] # (Auto) 0.7 H Eos # (Auto) 0.1 Baso # (Auto) 0.0 Abs Immat Gran (auto) 0.03 Absolute Neuts (auto) 6.7 Absolute Nucleated RBC 0.000 Nucleated RBC % 0.0 Sodium 132 L Potassium 3.5 Chloride 112 H Carbon Dioxide 14 L Anion Gap 6 BUN 5 L Creatinine 0.76 Estim Creat Clear Calc 70 Estimated GFR > 60 Glucose 86 Lactic Acid Calcium 7.5 L Total Bilirubin 0.3 AST 25 ALT 12 Alkaline Phosphatase 48 Total Protein 5.6 L Albumin 2.6 L Urine Color Urine Appearance Urine pH Ur Specific [place] Urine Protein Urine Glucose (UA) Urine Ketones Ur Blood (Man) Urine Nitrate Urine Bilirubin Urine Urobilinogen Leukocyte Esterase Rfl Urine RBC Urine WBC Ur Squamous Epith Cells Urine Bacteria Urine Casts POC Urine HCG, Qual Quality If No VTE Prophylaxis Answer both mechanical and pharmacologic: Reason no mechanical VTE proph: low risk/not indicated (young patient ambulating throughout room) Reason no pharmacologic proph: low risk/not indicated (young patient ambulating throughout room)
[2025-06-17 14:00] VITALS: BP 127/88; PULSE 76; RESP 18; TEMP 36.8; O2SAT 97
[2025-06-17] MEDS: cefTRIAXone 1 GM in SODIUM CHLORIDE 0.9% IV 50 ML 100 ML IVPB (16:35)
--- NOTE | 2025-06-17 18:11 | P.CONS_ITS ---
HPI Data of Consult Date/Time: 06/17/25 18:11 35-year-old female consultation requested for right Bartholin's gland cyst. Admitted for urinary tract infection and on antibiotics for this issue. Incidentally on CT scan question of right Bartholin gland cyst was noted. She denies any pain or discomfort, has had 2 by thin gland abscesses in the past (1 with each ) 10 years apart and has not had any issues with for the last 6 years and has had regular medical legal investigator visits as well. Patient declines exam today. Assessment/1. Bartholin gland cyst Plan/1. Discussed benign nature of this cyst unless infected which it is not. Patient states good understanding and is aware that if issues are to occur she can let her gynecologic know. Requesting Physician: Libby Perez MD Primary Care Provider: Yovana Bustos, Consult Narrative Narrative: Charisma Fontana is a 35 year old female [facility] Past Medical History Medical History (Updated 06/17/25 @ 08:59 by Cely Pfeiffer PA-C) Bipolar disorder Gestational diabetes Herpes Surgical History Surgical History History of appendectomy Social History Social History Smoking status: Former smoker Alcohol intake: former Substance use: never Do You Feel Safe in your Home?: Yes Lack of Transportation: No Lack of Food: Never True Current Housing: I Have Housing Concerned About Future Housing: No Difficulty Paying Gas/Electric Bills: No Difficulty Paying for Meds: No Currently Unemployed: No Education: High School Diploma/GED Difficulty w/ Childcare or Family Care: No Living arrangements: with family Gender identity (if verbalized by the patient): Female Spiritual care concerns: No Meds Home Medications and Allergies Home Medications ?Medication ?Instructions ?Recorded ?Confirmed ?Type drospirenone 3 mg-ethinyl 0.03 tablet PO HS 09/27/22 06/16/25 History estradiol 0.03 mg tablet topiramate 100 mg tablet 200 mg PO HS 09/27/22 06/16/25 History aripiprazole 10 mg tablet 10 mg PO DAILY 06/16/25 06/16/25 History eszopiclone 2 mg tablet 2 mg PO HS 06/16/25 06/16/25 History lisdexamfetamine 40 mg chewable 40 mg PO DAILY 06/16/25 06/16/25 History tablet (Vyvanse) valacyclovir 500 mg tablet 500 mg PO HS 06/16/25 06/16/25 History Allergies Allergy/AdvReac Type Severity Reaction Status Date / Time risperidone Allergy Severe Other Verified 06/16/25 13:29 Vital Signs Vital Signs - 24 hr 06/16/25 18:58 06/16/25 22:00 06/16/25 22:07 Temperature 98.2 F 97.8 F Pulse Rate 71 80 Respiratory Rate 16 16 Blood Pressure 103/77 103/63 Pulse Oximetry 100 100 Oxygen Delivery Room Air 06/17/25 05:58 06/17/25 08:00 06/17/25 14:00 Temperature 97.7 F 98.2 F Pulse Rate 78 76 Respiratory Rate 18 18 Blood Pressure 107/64 127/88 Pulse Oximetry 99 97 Oxygen Delivery Room Air Results Labs 06/17/25 05:46 06/17/25 05:46 Labs: Short CBC 06/17/25 Range/Units 05:46 WBC 9.8 (4.5-10.0) K/mm3 Hgb 10.2 L (12.0-15.0) g/dL Hct 31.5 L (37.0-47.0) % Plt Count 238 (150-375) k/mm3 [facility] 06/17/25 05:46 Sodium 132 L Potassium 3.5 Chloride 112 H Carbon Dioxide 14 L BUN 5 L Creatinine 0.76 Glucose 86 Calcium 7.5 L Liver Function 06/17/25 Range/Units 05:46 Total Bilirubin 0.3 (0.2-1.3) mg/dL AST 25 (14-36) U/L ALT 12 (6-35) U/L Alkaline Phosphatase 48 (38-126) U/L Albumin 2.6 L (3.5-5.1) g/dL
[2025-06-17 20:00] VITALS: O2SAT 95
[2025-06-17 20:15] LABS: MRSA (PCR) NOT DETECTED (NOT DETECTE)
[2025-06-17] MEDS: TOPIRAMATE 100 MG TABLET 200 MG PO (21:37)
[2025-06-17 21:41] VITALS: BP 104/64; PULSE 67; RESP 16; TEMP 36.3; O2SAT 95
[2025-06-18] MEDS: ACETAMINOPHEN 325 MG TABLET 650 MG PO ×2 (05:28→12:35)
[2025-06-18 06:00] VITALS: BP 110/76; PULSE 71; RESP 16; TEMP 36.6; O2SAT 95
[2025-06-18 06:22] LABS: Hematocrit 34.1 % (37.0-47.0); Hemoglobin 10.9 g/dL (12.0-15.0); Mean Corpuscular HGB Conc 32.0 g/dl (32-36); Mean Corpuscular Hemoglobin 29.4 pg (26-34); Mean Corpuscular Volume 91.9 fl (80-100); Platelet Count Result 267 k/mm3 (150-375); Red Blood Count 3.71 M/mm3 (4.2-5.4); White Blood Count 8.2 K/mm3 (4.5-10.0)
[2025-06-18 06:40] LABS: Alanine Aminotransferase 28 U/L (6-35); Albumin Level 2.9 g/dL (3.5-5.1); Alkaline Phosphatase 52 U/L (38-126); Anion Gap 7 mmol/L (4-12); Aspartate Amino Transferase 49 U/L (14-36); Bilirubin,Total 0.2 mg/dL (0.2-1.3); Blood Urea Nitrogen 5 mg/dL (7-17); Calcium 8.4 mg/dL (8.4-10.2); Carbon Dioxide 16 mmol/L (22-30); Chloride 113 mmol/L (98-107); Estimated CRCL calculation 65 ml/min; Estimated Glomerular Filt Rate > 60; Glucose 87 mg/dL (65-110); Potassium 3.7 mmol/L (3.4-5.0); Sodium 136 mmol/L (137-145); Total Protein 6.0 g/dL (6.3-8.2)
[2025-06-18] MEDS: PHENAZOPYRIDINE HCL 100 MG TABLET 200 MG PO ×2 (08:30→12:36)
--- NOTE | 2025-06-18 13:58 | P.DS_ITS ---
DS: Admitting Diagnosis Discharge Date 06/18/2025 Admitting Diagnosis pyelonephritis UTI Bartholin cyst DS: Discharge Diagnosis Discharge Diagnosis (1) Pyelonephritis: Code(s): N12 - Tubulo-interstitial nephritis, not specified as acute or chronic Status: Acute (2) Urinary tract infection: Code(s): N39.0 - Urinary tract infection, site not specified Status: Acute (3) Cyst of Bartholin's gland duct: Code(s): N75.0 - Cyst of Bartholin's gland Status: Acute DS: Summary Hospital Course Reason for hospitalization: pyelonephritis UTI Bartholin cyst Hospital Course: 35 year old female with past medical history of bipolar presents to the hospital for right flank pain. Not meeting sepsis criteria on admission. UA concerning for infection. CT abdomen/pelvis: Suggestive cystitis, with possible ascending infection on the right. Consider pyelonephritis in the differential. Periportal edema, as can occur with hepatitis and acute pyelonephritis. Urine culture obtained and patient started on IV antibiotics. Patients flank pain continued to improve throughout admission and she denied any dysuria, burning sensation, hematuria or abdominal pain at time of discharge. Given that the urine culture had not returned, had an in-depth conversation with patient in terms of discharge. Discussed with patient that if the urine culture comes back and shows resistance to the oral antibiotic that they were discharged on they will either receive a phone call and a new oral antibiotic will be sent to the pharmacy or they will have to come back to the hospital for IV antibiotics if no oral option is available. Patient stated understanding and was agreeable with discharge at that time. Imaging was showing a bartholin cyst which patient has a history of requiring I&D. install and repair technician consulted and no acute intervention required at this time. If the cyst becomes more painful or increases in size patient to follow up with electrotherapist in the outpatient setting. Patient had no complaints at time of discharge denying chest pain, shortness of breath, palpitations, nausea/vomiting and abdominal pain. Patient discharged home in a stable condition. She is to follow up with her primary care provider in 1 week and install and repair technician as needed. Status at Discharge Functional status at discharge: independent ambulation Time Spent with Patient Time attestation: Total time spent providing and/or coordinating discharge services: Time spent: Greater than 30 minutes Exam Narrative: AF HR 71 RR 16 SpO2 95 BP 110/76 General: well nourished, well-developed female in no acute respiratory distress who is nontoxic appearing, sitting up in bed. HEENT: Normocephalic. Atraumatic. Extraocular movement intact. Sclera clear and anicteric. No facial asymmetry. Chest: Lungs are clear to auscultation bilaterally. No wheezes or crackles. CV: Heart was regular rate and rhythm. S1-S2. No murmurs, gallops, or rubs. Abd: Abdomen was soft. Nontender. Nondistended. Positive bowel sounds. No organomegaly or masses. No CVA tenderness. Neuro: Patient is alert and oriented x4. Speech is clear. DS: Data Data Completed and Pending Completed studies during hospitalization: abdomen/pelvis CT Labs on day of discharge: Labs from last 24 hours 06/18/25 06/17/25 06:11 18:54 WBC 8.2 RBC 3.71 L Hgb 10.9 L Hct 34.1 L MCV 91.9 MCH 29.4 MCHC 32.0 RDW 13.2 Plt Count 267 MPV 10.2 Sodium 136 L Potassium 3.7 Chloride 113 H Carbon Dioxide 16 L Anion Gap 7 BUN 5 L Creatinine 0.82 Estim Creat Clear Calc 65 Estimated GFR > 60 Glucose 87 Calcium 8.4 Total Bilirubin 0.2 AST 49 H ALT 28 Alkaline Phosphatase 52 Total Protein 6.0 L Albumin 2.9 L Nasal MRSA (PCR) Not detected Discharge Plan Discharge Attending physician on discharge: Libby Perez Consulting providers: Cely Pfeiffer; Tyler Colon Discharging Clinician: Cely Pfeiffer Anticipated Discharge Date/Time: 06/18/25 13:49 Patient Disposition: Home Activity: as tolerated Diet: as tolerated Discharge Instructions: Discharge disposition: Take all medications as prescribed even if feeling better Augmentin twice a day, course to be completed on June 25 Attached is information on this medication If the urine culture returns and the current antibiotic does not cover the specific bacteria you will receive a phone call and a new prescription will be sent to your pharmacy or if the specific bacteria is resistant to oral antibiotics you will have to return to the hospital for IV antibiotics. If you do not receive a phone call complete the prescribed antibiotic as scheduled. Eat well balanced meals and stay hydrated Keep active to remain strong Good smita Care every 2 hours Trend urine output Your also diagnosed with recurrent Bartholin gland cyst Evaluated by gutter installer If the cyst enlarges or becomes painful follow-up the melter supervisor open hearth furnace in the outpatient setting Take caution while standing, rising, or moving Change positions slowly taking a break between each position change If you standing feel dizzy sit back down and take a break Encouraged to continue with yearly vaccinations Return to the emergency department if he developed sudden shortness of breath, chest pain, nausea, vomiting, upset stomach or intractable diarrhea Return to the emergency department if you develop fever greater than 100.5 Follow-up with the primary care physician within 1-2 weeks Thank you for choosing [facility] for your healthcare needs Patient Instructions: Antibiotic Form, Amoxicillin/Clavulanate Potassium (By mouth), Urinary Tract Infection in Women (DC), Kidney Infection (DC), Bartholin Cyst (GEN) Patient Language: Dominican Stand Alone Forms: General Discharge Information, Work/School Release IP Follow-up/Referrals: Caitlyn,Yovana Cespedes MD [Primary Care Provider] - 1 Week Discharge Medications: New amoxicillin-pot clavulanate 875-125 mg tablet 1 tablet PO Q12H Qty: 14 0RF Continued topiramate 100 mg tablet 200 mg PO HS drospirenone-ethinyl estradiol 3-0.03 mg tablet 0.03 tablet PO HS eszopiclone 2 mg tablet 2 mg PO HS lisdexamfetamine [Vyvanse] 40 mg tablet,chewable 40 mg PO DAILY aripiprazole 10 mg tablet 10 mg PO DAILY valacyclovir 500 mg tablet 500 mg PO HS Date of admission: 06/16/25 17:34 Primary Care Provider: CaitlynYovana Admitting Provider: Libby Perez Attending physician on admission: Libby Perez Condition: Stable Hospitalist MIPS Heart Failure (Exclusion) Patient has history of Heart Transplant or Left Ventricular Assistive Device?: No IF YES, STOP HERE Heart Failure (Qualifier) Patient has current or prior documentation of LVEF less than or equal to 40%, or mod/servere depressed LVSF?: No IF NO, STOP HERE
[2025-06-18 14:00] VITALS: BP 106/71; PULSE 65; RESP 16; TEMP 36.9; O2SAT 95
[2025-06-18] MEDS: cefTRIAXone 1 GM in SODIUM CHLORIDE 0.9% IV 50 ML 100 ML IVPB (15:01)
--- NOTE | 2025-06-20 08:10 | PC.NURSE ---
Urine cx shows Mixed urogenital alecia.
== END 2025-06-18 15:57 | disposition home or self-care (01) ==
LOC: ANHED 14:17 → ANH3MEDSUR 18:20
PROVIDERS: Student in an Organized Health Care Education/Training Program; Admitting Provider Internal Medicine; Emergency Provider General Practice; PCP Internal Medicine; Visit Provider Internal Medicine
DX: N12 Tubulo-interstitial nephritis, not specified as acute or chronic (principal); N39.0 Urinary tract infection, site not specified; N75.0 Cyst of Bartholin's gland; F31.9 Bipolar disorder, unspecified; B00.9 Herpesviral infection, unspecified; Z87.891 Personal history of nicotine dependence; Z79.899 Other long term (current) drug therapy
CPT/HCPCS: 36415; 74177; 80053; 81001; 81025; 83605; 85025; 85027; 87086; 87641; 96361; 96365; 96375; 96376; 99285; A9270; G0378; J0696; J1885; J2405; J7030; J7120; Q9967